=== PATIENT | female | born 1935 | race Caucasian/White ===

== ENCOUNTER 2017-03-18 07:51 | Inpatient (IN) ==
[2017-03-18 08:44] LABS: Basophils % 0.2 %; Eosinophils # 0.1 K/mcL (0.0-0.6); Eosinophils % 1.2 %; Hematocrit 40.4 % (35.3-44.9); Hemoglobin 12.8 g/dL (11.5-15.4); Immature Granulocytes % 0.2 % (0-4); Lymphocytes # 0.8 K/mcL (0.6-4.6); Lymphocytes % 19.6 %; Mean Corpuscular HGB Conc 31.7 g/dL (31.6-35.5); Mean Corpuscular Hemoglobin 29.7 pg (28.0-33.3); Mean Corpuscular Volume 93.7 fL (83.0-100.0); Mean Platelet Volume 11.1 fL (9.4-12.4); Monocytes # 0.3 K/mcL (0.0-1.3); Monocytes % 8.1 %; Neutrophils # 2.9 K/mcL (1.6-8.9); Platelet Count 142 K/mcL (140-400); Red Blood Count 4.31 M/mcL (3.82-4.97); Red Cell Distribution Width 13.4 % (11.5-14.5); Segmented Neutrophils % 70.7 %
[2017-03-18 08:46] LABS: INR 1.1; Prothrombin Time 12.1 Seconds (9.4-12.1)
[2017-03-18 08:49] LABS: Bilirubin,Urine Negative (Negative); Blood,Urine Negative (Negative); Color,Urine Yellow (Yellow); Glucose,Urine (UA) Normal (Normal); Ketones,Urine Negative (Negative); Leukocyte Esterase,Urine Negative (Negative); Nitrite,Urine Negative (Negative); PH,Urine 7.5 pH Units (5.0-8.0); Protein,Urine Negative (Neg-Trace); Specific Gravity,Urine 1.017 (1.010-1.025); Urobilinogen,Urine Normal (Normal)
[2017-03-18 08:49] LABS: Activated Partial Thrombo Time 30.5 Seconds (26.0-36.0)
[2017-03-18 08:51] LABS: Bacteria,Urine None Seen per hpf (None-Few); Hyaline Casts,Urine None Seen per lpf (None-Few); RBC,Urine 0-3 per hpf (0-3); Squamous Epithelial Cell,Urine Few per lpf (None-Few)
[2017-03-18 08:53] LABS: Clarity,Urine Clear (Clear)
[2017-03-18 08:54] LABS: Amphetamine Screen,Urine Negative ng/mL (Cutoff=1000); Barbiturate Screen,Urine Negative ng/mL (Cutoff=200); Benzodiazepines Screen,Urine Negative ng/mL (Cutoff=200); Cannabinoid Screen,Urine Negative ng/mL (Cutoff = 50); Cocaine Screen,Urine Negative ng/mL (Cutoff= 300); Opiate Screen,Urine Negative ng/mL (Cutoff=300); Phencyclidine Screen,Urine Negative ng/mL (Cutoff=25)
[2017-03-18 08:55] LABS: BUN/Creatinine Ratio 11 (6-26); Blood Urea Nitrogen 10 mg/dL (7-20); Carbon Dioxide 30 mEq/L (19-29); Chloride 105 mEq/L (98-109); Potassium 4.2 mEq/L (3.5-4.5); Sodium 139 mEq/L (136-145); eGFR For African Americans > 60 (> 60)
[2017-03-18 08:56] LABS: Alanine Aminotransferase 18 Units/L (0-55); Albumin 3.4 g/dL (3.5-5.0); Albumin/Globulin Ratio 0.9 (1.1-2.2); Alkaline Phosphatase 69 Units/L (38-126); Aspartate Amino Transferase 26 Units/L (5-34); Bilirubin,Direct 0.4 mg/dL (0.0-0.5); Bilirubin,Indirect 0.5 mg/dL (0.0-1.2); Bilirubin,Total 0.9 mg/dL (0.2-1.2); Calcium 9.3 mg/dL (8.6-10.8); Ethanol < 10 mg/dL (0-10); Globulin 3.9 g/dL (2.4-3.5); Glucose 98 mg/dL (70-99); Osmolality,Calculated 287 (280-300); Total Protein 7.3 g/dL (6.0-8.3); eGFR For Non-African Americans > 60 (> 60)
[2017-03-18 09:16] LABS: Thyroid Stimulating Hormone 7.902 mcIU/mL (0.350-4.840)
[2017-03-18] MEDS ORDERED: Ondansetron 4 MG/2 ML VIAL IVP PRN (11:37)
[2017-03-18] MEDS ORDERED: Acetaminophen 325 MG TABLET PO PRN (11:37)
[2017-03-18] MEDS ORDERED: Naloxone 0.4 MG/ML INJ IVP PRN (11:37)
--- NOTE | 2017-03-18 11:59 | Emergency Department Note ---
Disposition Clinical Impression: Altered mental status Qualifiers: Altered mental status type: unspecified Qualified Code(s): R41.82 - Altered mental status, unspecified Disposition: Admitted As Inpatient General Adult HPI - General Chief complaint: ED Altered Mental Status Stated complaint: confused and shaky Time Seen by Provider: 03/18/17 08:09 Source: patient Limitations: no limitations Nursing Notes Reviewed: Yes Vital Signs Reviewed: Yes - History of Present Illness HPI Narrative: 81-year-old female presenting with concern for altered mental status. She does have known dementia however family reports that during the evenings at approximately 2 AM she becomes acutely confused. Her dementia is minimal at this time per her brother's history. She has no trauma, denies new medications. She ambulates without difficulty. She has no focal neurological deficit on arrival. She is repetitive and confused. She denies cough, congestion, fever, chills, night sweats. Pain Scale: 0 - Related Data Home Medications Medication Instructions Recorded Confirmed Digoxin [Lanoxin] 0.125 mg PO DAILY 03/18/17 03/18/17 Metoprolol XL (24 HR) Succ [Toprol 12.5 mg PO DAILY 03/18/17 03/18/17 XL] Rivaroxaban [Xarelto] 20 mg PO DAILY 03/18/17 03/18/17 Allergies Allergy/AdvReac Type Severity Reaction Status Date / Time No Known Allergies Allergy Verified 03/18/17 10:37 All systems ED: reviewed and negative except as stated. Past Medical History - Past Medical History Medical history: Reports: atrial fibrillation, dementia, hypertension, valvular heart disease Psychiatric history: Reports: no psych history - Social History Smoking Status: Never smoker Smokeless Tobacco Status: No Alcohol use: Reports: none Drug use: Reports: none Physical Exam Confused, alert to person however not place or time Pupils are equal round and reactive to light Trachea is midline Mucous membranes are moist Irregular cardiac rhythm consistent with underlying atrial fibrillation Lungs clear and equal bilaterally Abdomen soft and nontender Extremities well perfused Skin pink warm and dry Strength is 5/5, sensation normal, reflexes checked and normal. - General Limitations: no limitations General appearance: alert, in no apparent distress Course Vital Signs Temperature 97.4 F L 03/18/17 07:54 Pulse Rate 107 03/18/17 07:54 Respiratory Rate 16 03/18/17 07:54 Blood Pressure 149/89 03/18/17 07:54 O2 Sat by Pulse Oximetry 98 03/18/17 07:54 Temperature 97.4 F L 03/18/17 07:54 Pulse Rate 95 03/18/17 09:12 Respiratory Rate 16 03/18/17 09:12 Blood Pressure 147/87 03/18/17 09:12 O2 Sat by Pulse Oximetry 98 03/18/17 07:54 Oxygen Delivery Oxygen Delivery Room Air Medical Decision Making - MDM Narrative Medical decision making narrative: 81-year-old female with dementia, now having worsening mental status and possibly sundowning. She does of acute confusion which starts at approximately 2 AM every night. She does live independently but has assistance from her brother who dispenses her medications. She has no new medications. She is no focal neurological deficit on arrival. I do feel at this point she is likely unsafe to go home and would benefit from inpatient rehabilitation and possible geriatric psychiatric consultation after neurology clearance. - Medical Records Medical records reviewed: Yes I reviewed the patient's medical records. - Lab Data Lab results reviewed: Yes I reviewed the patient's lab results. Result diagrams: 03/18/17 08:31 03/18/17 08:31 Lab Results 03/18/17 03/18/17 03/18/17 Range/Units 08:31 08:31 08:31 WBC 4.1 L (4.3-11.1) K/mcL RBC 4.31 (3.82-4.97) M/mcL Hgb 12.8 (11.5-15.4) g/dL Hct 40.4 (35.3-44.9) % MCV 93.7 (83.0-100.0) fL MCH 29.7 (28.0-33.3) pg MCHC 31.7 (31.6-35.5) g/dL RDW 13.4 (11.5-14.5) % Plt Count 142 (140-400) K/mcL MPV 11.1 (9.4-12.4) fL Immature Gran % 0.2 (0-4) % Seg Neutrophils % 70.7 % Lymphocytes % 19.6 % Monocytes % 8.1 % Eosinophils % 1.2 % Basophils % 0.2 % Neutrophils # 2.9 (1.6-8.9) K/mcL Lymphocytes # 0.8 (0.6-4.6) K/mcL Monocytes # 0.3 (0.0-1.3) K/mcL Eosinophils # 0.1 (0.0-0.6) K/mcL Basophils # 0.0 (0.0-0.2) K/mcL PT 12.1 (9.4-12.1) Seconds INR 1.1 APTT 30.5 (26.0-36.0) Seconds Sodium 139 (136-145) mEq/L Potassium 4.2 (3.5-4.5) mEq/L Chloride 105 (98-109) mEq/L Carbon Dioxide 30 H (19-29) mEq/L BUN 10 (7-20) mg/dL Creatinine 0.89 (0.57-1.11) mg/dL Est GFR ( Amer) > 60 (> 60) Est GFR (Non-Af Amer) > 60 (> 60) BUN/Creatinine Ratio 11 (6-26) Glucose 98 (70-99) mg/dL Calculated Osmolality 287 (280-300) Calcium 9.3 (8.6-10.8) mg/dL Total Bilirubin 0.9 (0.2-1.2) mg/dL Direct Bilirubin 0.4 (0.0-0.5) mg/dL Indirect Bilirubin 0.5 (0.0-1.2) mg/dL AST 26 (5-34) Units/L ALT 18 (0-55) Units/L Alkaline Phosphatase 69 (38-126) Units/L Troponin I (0-0.03) ng/mL Serum Total Protein 7.3 (6.0-8.3) g/dL Albumin 3.4 L (3.5-5.0) g/dL Globulin 3.9 H (2.4-3.5) g/dL Albumin/Globulin Ratio 0.9 L (1.1-2.2) TSH 7.902 H (0.350-4.840) mcIU/mL Urine Color (Yellow) Urine Clarity (Clear) Urine pH (5.0-8.0) pH Units Ur Specific [place] (1.010-1.025) Urine Protein (Neg-Trace) mg/dL Urine Glucose (UA) (Normal) mg/dL Urine Ketones (Negative) mg/dL Urine Blood (Negative) Urine Nitrite (Negative) Urine Bilirubin (Negative) Urine Urobilinogen (Normal) mg/dL Ur Leukocyte Esterase (Negative) Urine Microscopic RBC (0-3) per hpf Ur Squamous Epith Cells (None-Few) per lpf Urine Bacteria (None-Few) per hpf Hyaline Casts (None-Few) per lpf Ur Culture Indicated? (NO) Urine Opiates Screen (Cgurmt=522) ng/mL Ur Barbiturates Screen (Ruzzcl=758) ng/mL Ur Phencyclidine Scrn (Cutoff=25) ng/mL Ur Amphetamines Screen (Ogqztn=4472) ng/mL U Benzodiazepines Scrn (Mzkhdo=136) ng/mL Urine Cocaine Screen (Cutoff= 300) ng/mL U Marijuana (THC) Screen (Cutoff = 50) ng/mL Ethyl Alcohol < 10 (0-10) mg/dL 03/18/17 03/18/17 03/18/17 Range/Units 08:31 08:36 08:36 WBC (4.3-11.1) K/mcL RBC (3.82-4.97) M/mcL Hgb (11.5-15.4) g/dL Hct (35.3-44.9) % MCV (83.0-100.0) fL MCH (28.0-33.3) pg MCHC (31.6-35.5) g/dL RDW (11.5-14.5) % Plt Count (140-400) K/mcL MPV (9.4-12.4) fL Immature Gran % (0-4) % Seg Neutrophils % % Lymphocytes % % Monocytes % % Eosinophils % % Basophils % % Neutrophils # (1.6-8.9) K/mcL Lymphocytes # (0.6-4.6) K/mcL Monocytes # (0.0-1.3) K/mcL Eosinophils # (0.0-0.6) K/mcL Basophils # (0.0-0.2) K/mcL PT (9.4-12.1) Seconds INR APTT (26.0-36.0) Seconds Sodium (136-145) mEq/L Potassium (3.5-4.5) mEq/L Chloride (98-109) mEq/L Carbon Dioxide (19-29) mEq/L BUN (7-20) mg/dL Creatinine (0.57-1.11) mg/dL Est GFR ( Amer) (> 60) Est GFR (Non-Af Amer) (> 60) BUN/Creatinine Ratio (6-26) Glucose (70-99) mg/dL Calculated Osmolality (280-300) Calcium (8.6-10.8) mg/dL Total Bilirubin (0.2-1.2) mg/dL Direct Bilirubin (0.0-0.5) mg/dL Indirect Bilirubin (0.0-1.2) mg/dL AST (5-34) Units/L ALT (0-55) Units/L Alkaline Phosphatase (38-126) Units/L Troponin I 0.02 (0-0.03) ng/mL Serum Total Protein (6.0-8.3) g/dL Albumin (3.5-5.0) g/dL Globulin (2.4-3.5) g/dL Albumin/Globulin Ratio (1.1-2.2) TSH (0.350-4.840) mcIU/mL Urine Color Yellow (Yellow) Urine Clarity Clear (Clear) Urine pH 7.5 (5.0-8.0) pH Units Ur Specific [place] 1.017 (1.010-1.025) Urine Protein Negative (Neg-Trace) mg/dL Urine Glucose (UA) Normal (Normal) mg/dL Urine Ketones Negative (Negative) mg/dL Urine Blood Negative (Negative) Urine Nitrite Negative (Negative) Urine Bilirubin Negative (Negative) Urine Urobilinogen Normal (Normal) mg/dL Ur Leukocyte Esterase Negative (Negative) Urine Microscopic RBC 0-3 (0-3) per hpf Ur Squamous Epith Cells Few (None-Few) per lpf Urine Bacteria None Seen (None-Few) per hpf Hyaline Casts None Seen (None-Few) per lpf Ur Culture Indicated? NO (NO) Urine Opiates Screen Negative (Zwlcbd=525) ng/mL Ur Barbiturates Screen Negative (Fsljuf=507) ng/mL Ur Phencyclidine Scrn Negative (Cutoff=25) ng/mL Ur Amphetamines Screen Negative (Wbawvo=0048) ng/mL U Benzodiazepines Scrn Negative (Utuwpr=284) ng/mL Urine Cocaine Screen Negative (Cutoff= 300) ng/mL U Marijuana (THC) Screen Negative (Cutoff = 50) ng/mL Ethyl Alcohol (0-10) mg/dL
--- NOTE | 2017-03-18 12:06 | Internal Med History&Physical ---
<Artemio Hassan - Last Filed: 03/18/17 17:00> Date of Encounter: 03/18/17 Time of Encounter: 11:00 Assessment and Plan (1) Altered mental status Current visit: Yes Status: Acute Patient presents with altered mental status. Patient was brought to the ED by her brother who states that the patient called him three times in the distribution dispatcher and cannot remember doing so. Patient currently lives alone. Patient is lucid during examination but has flight of thoughts and transient thinking. She states that she begins to feel different around 2 a.m. and doesn't begin to feel like herself until around noon. She states that she drives and is very active normally. She states that she cuts her grass, walks her dog, and is normally very active. She states that she just wants to feel okay again. She reports a 15 pound weight loss but cannot remember over what time period. CT of the head brain without contrast today shows no acute intracranial abnormality and mild age-appropriate diffuse atrophy with minimal chronic small vessel ischemic change. Haldol ordered 2 mg BID PRN (especially HS) for possible agitation. Patient alert/oriented x2. Neurology consult ordered and discussed with Dr. Kern. EEG ordered. Falls/safety precautions. SW consult ordered for possible need for placement. Will continue patient's home medications. Patient should be assessed by her PCP for possible administration of Namenda or Aricept based on current symptoms. Qualifiers: Altered mental status type: transient alteration of awareness Qualified Code(s): R40.4 - Transient alteration of awareness (2) Elevated TSH Current visit: Yes Status: Acute Patient presents with TSH of 7.092 on admission to the ED today. Patient has no known history of thyroid disease and does not currently take medication. Free T4 , Total T3 levels ordered to assess for the need for levothyroxine administration. (3) Safety impairment Current visit: Yes Status: Acute Patient presents with acute safety impairment on examination. Patient is lucid but has flight of thoughts and transient thinking. Patient's brother states that he believes the patient was doubling up on her medication without knowing so he has taken her meds and dispenses them to her daily. SW consult order placed to asses patient for possible need for placement to assistive living. Patient states that she still drives and is relatively active. PT/OT consults ordered to assess patient for possible strength needs. Patient placed as falls precautions/up with assist/bed rest with bathroom privileges with assist only. (4) Atrial fibrillation Current visit: Yes Status: Chronic Patient percents with history of chronic atrial fibrillation. Patient placed on continuous cardiac telemetry and we will continue patient's digoxin and Xarelto. Digoxin level ordered. Qualifiers: Atrial fibrillation type: chronic Qualified Code(s): I48.2 - Chronic atrial fibrillation (5) HTN (hypertension) Current visit: Yes Status: Chronic Patient presents with history of chronic hypertension. Will monitor patient vital signs and continue patient's metoprolol. Qualifiers: Hypertension type: essential hypertension Qualified Code(s): I10 - Essential (primary) hypertension (6) DVT prophylaxis Current visit: Yes Status: Acute Patient to be placed on DVT prophylaxis due to current admission protocol and bed rest status. Will continue patient's Xarelto. Internal Medicine - H&P: HPI Chief complaint: Altered Mental Status Admitted From: Emergency Dept Plans for Post Hospital Care: Home History of present illness: Mrs. Jones is a 81 year old female who presents from the ED with chief complaint of altered mental status. Patient was brought to the ED by her brother who states that the patient called him three times in the eary morning and cannot remember doing so. Patient is lucid during examination but has flight of thoughts and transient thinking. She states that she begins to feel different around 2 a.m. and doesn't begin to feel like herself until around noon. She states that she drives and is very active normally. She states that she cuts her grass, walks her dog, and is normally very active. She states that she just wants to feel okay again. She reports a 15 pound weight loss but cannot remember over what time period. She denies any weakness, unsteadiness on her feet, recent illness, fever, chills, nausea, vomiting, abdominal pain, or unusual bleeding. Patient does have hematomas present on her UEs and LEs related to her Xarelto use. Patient currently has atrial fibrillation. Patient denies any medical history that she can remember, but she does have Afib and takes medication for HTN. Will do lipid panel and A1c to assess for HLD and DM. TSH is 7.902 on admission to ED. Free T4 ordered. Patient may benefit from Synthroid based on results. Patient has familial history of Alzheimer's disease as well as CVA/stroke. CT of the head today without contrast shows no acute intracranial abnormality with mild age-appropriate diffuse atrophy with minimal chronic small vessel ischemic change. Mrs. Jones currently lives alone and is at moderate risk for neurological decline and safety issues based on current symptoms and history of AMS and will be placed as observation status with orders for continuous cardiac telemetry d/t Afib, dysphagia screen (NPO status to be discontinued for cardiac diet once screening is passed), bilateral carotid Doppler duplex imaging, Falls/safety precautions, supplemental O2, and consults for SW/PT/OT. Haldol 2 mg HS and BID PRN ordered for agitation. Patient to be monitored closely for signs of neurological decline. Time spent with patient and family >30 minutes. Past Med Surg Social Fam HX - Past Medical History Source: obtained from family Medical history: atrial fibrillation, dementia, hypertension, valvular heart disease Psychiatric history: no psych history - Past Surgical History Surgical History: non-contributory - Social History Smoking Status: Never smoker Smokeless Tobacco Status: No Alcohol use: none Drug use: none Occupational status: previously employed Current living situation: Home Activity Level: Independent ambulation, Very active Recent Out of Country Travel Within the Last 8 Weeks: No Exposure or Possible Exposure to Illness During Travel: No - Family History Father Race: Family Member Ethnicity: Non- Living Status: Age at : 45 Cause of : Throat cancer Hx Family Cancer: Yes (Throat) Mother Race: Family Member Ethnicity: Non- Living Status: Age at : 79 Cause of : Stroke Hx Family Cardiac Disorders: Yes (Stroke/CVA) Brother Race: Family Member Ethnicity: Non- Living Status: Still Living Hx Family Cardiac Disorders: Yes (Heart murmur) Sister Race: Family Member Ethnicity: Non- Living Status: Still Living Hx Family Neurologic Disorders: Yes (Alzheimer's dementia) Internal Medicine - H&P: Meds Digoxin [Lanoxin] 0.125 mg PO DAILY 03/18/17 [History] Metoprolol XL (24 HR) Succ [Toprol XL] 12.5 mg PO DAILY 03/18/17 [History] Rivaroxaban [Xarelto] 20 mg PO DAILY 03/18/17 [History] 3 Allergy/AdvReac Type Severity Reaction Status Date / Time No Known Allergies Allergy Verified 03/18/17 10:37 All Systems PM: A 10-system review of systems was performed and is negative for pertinent findings except as documented above in the HPI. - Constitutional Constitutional: as per HPI, weight loss (15 pounds over unknown time period), no chills, no fever(s), no night sweats - EENT Eyes: no change in vision, no discharge, no pain, no photophobia Ears: no ear discharge, no ear pain, no tinnitus Nose, mouth and throat: no dysphagia, no nasal discharge, no neck pain, no sore throat - Breasts Breasts: as per HPI - Cardiovascular Cardiovascular ROS IM: as per HPI, irregular heart rhythm (Atrial fibrillation) - Respiratory Respiratory: no cough, no dyspnea, no wheezing, no excessive phlegm production - Gastrointestinal Gastrointestinal: no abdominal pain, no diarrhea, no hematemesis, no hematochezia, no melena, no nausea, no vomiting - Genitourinary Genitourinary: no change in urinary stream, no dysuria, no flank pain, no hematuria Menstruation: as per HPI - Musculoskeletal Musculoskeletal ROS IM: no numbness, no tingling - Integumentary Integumentary IM: no rash, no unusual bruising - Neurological Neurological ROS: as per HPI, confusion, memory loss - Psychiatric Psychiatric: as per HPI, confusion, memory loss - Endocrine Endocrine IM: as per HPI - Hematologic/Lymphatic Hematologic/Lymphatic: no easy bruising - Allergic/Immunologic Allergic/Immunologic: as per HPI - Constitutional Vitals: Temp Pulse Resp BP Pulse Ox 97.4 F L 95 16 147/87 98 03/18/17 07:54 03/18/17 09:12 03/18/17 09:12 03/18/17 09:12 03/18/17 07:54 General appearance: Present: cooperative, A&O X 2, pleasant, no acute distress, underweight, answers questions appropriately - Head Head exam: Present: atraumatic, normocephalic - Eye Eye exam: Present: PERRL, conjuntiva pink, sclera anicteric Pupils: Present: PERRL - ENT ENT exam: Present: normal exam, normal external ear exam - Neck Neck exam general surgery: Present: supple, trachea midline. Absent: lymphadenopathy - Respiratory Respiratory exam: Present: CTAB. Absent: accessory muscle use, rales, rhonchi, wheezes - Cardiovascular Cardiovascular exam: Present: irregular rhythm (Atrial fibrillation) - GI/Abdominal GI/Abdominal exam: Present: normal bowel sounds, soft, no peritoneal signs. Absent: distended, tenderness - Rectal Rectal exam: Present: deferred - Additional comments: exam deferred. - Extremities Exam Extremities exam: Present: warm, radial pulses palpable and symmetrical. Absent : calf tenderness, cyanotic, pedal edema - Back Exam Back exam: Present: normal inspection - Neurological Exam Neurological exam: Present: altered, reflexes normal, strengths equal and symetr throughout - Psychiatric Psychiatric exam: Present: normal affect, normal mood - Skin Skin exam: Present: dry, intact Additional comments: Some bruising and hematomas present on UEs and LEs due to Xarelto use. Internal Med - H&P Results - Labs CBC & Chem 7: 03/18/17 08:31 03/18/17 08:31 - EKG Data Prior EKG available for review: yes When compared to previous EKG: there is no significant change EKG comments: 03/18/17 12:25 Ekg dated 01/31/17 shows atrial fibrillation with abnormal rhythm ECG. EKG dated 03/18/17 shows atrial fibrillation with nonspecific T-wave abnormality and abnormal rhythm ECG. 03/18/17 12:26 - Diagnostic Studies Chest x-ray Additional comments: Impressions Chest X-Ray 03/18/17 08:11 IMPRESSION: Mild right and left mid lung atelectasis. Cardiomegaly. D/ / Ngoc Mares MD / Ngoc Mares MD Interpreting Provider: Ngoc Mares MD CT scan - head Additional comments: Impressions Head CT 03/18/17 08:12 IMPRESSION: 1. No acute intracranial abnormality. 2. Mild age-appropriate diffuse atrophy with minimal chronic small vessel ischemic change. D/ / Jairo Sheehan MD / Jairo Sheehan MD Interpreting Provider: Jairo Sheehan MD <Justine Falk - Last Filed: 03/18/17 17:35> Date of Encounter: 03/18/17 Internal Medicine - H&P: HPI History of present illness: Ms. Jones is a 81 year old female All Systems PM: A 10-system review of systems was performed and is negative for pertinent findings except as documented above in the HPI. - Constitutional Vitals: Temp Pulse Resp BP Pulse Ox 97.9 F 91 16 133/81 97 03/18/17 16:02 03/18/17 16:02 03/18/17 16:02 03/18/17 16:02 03/18/17 16:02 Internal Med - H&P Results - Labs CBC & Chem 7: 03/18/17 08:31 03/18/17 08:31 - Attending Attestation Pt independently seen and examined. Admitted for worsening dementia. Noted to have thyroid studies consistent with hypothyroidism. Will start low dose levothyroxine. Neurology evaluation requested. social organization professor consultation requested for placement. Case discussed with SEBLE Hassan, I agree with his documented findings , assessment, and plan.
[2017-03-18 13:49] LABS: Digoxin < 0.3 ng/mL (0.8-2.0)
[2017-03-18] MEDS: *HR* Rivaroxaban 15 MG TABLET PO SCH (14:10)
[2017-03-18] MEDS: Metoprolol XL (24 HR) Succ 25 MG TAB.ER.24H PO SCH (14:10)
[2017-03-18] MEDS: *HR* Digoxin 0.125 MG TABLET PO SCH (14:10)
[2017-03-19] MEDS: Levothyroxine 25 MCG TABLET PO SCH (05:33)
[2017-03-19 05:40] LABS: Basophils % 0.3 %; Eosinophils # 0.1 K/mcL (0.0-0.6); Eosinophils % 1.7 %; Hematocrit 39.9 % (35.3-44.9); Hemoglobin 12.5 g/dL (11.5-15.4); Lymphocytes % 28.5 %; Mean Corpuscular HGB Conc 31.3 g/dL (31.6-35.5); Mean Corpuscular Hemoglobin 29.1 pg (28.0-33.3); Mean Platelet Volume 10.8 fL (9.4-12.4); Monocytes # 0.4 K/mcL (0.0-1.3); Monocytes % 10.4 %; Neutrophils # 2.1 K/mcL (1.6-8.9); Platelet Count 131 K/mcL (140-400); Red Blood Count 4.29 M/mcL (3.82-4.97); Red Cell Distribution Width 13.7 % (11.5-14.5); Segmented Neutrophils % 59.1 %
[2017-03-19 05:46] LABS: INR 1.3; Prothrombin Time 13.6 Seconds (9.4-12.1)
[2017-03-19 05:47] LABS: Hemoglobin A1C 5.5 %
[2017-03-19 05:48] LABS: Activated Partial Thrombo Time 33.2 Seconds (26.0-36.0)
[2017-03-19 05:55] LABS: BUN/Creatinine Ratio 12 (6-26); Blood Urea Nitrogen 10 mg/dL (7-20); Calcium 8.9 mg/dL (8.6-10.8); Carbon Dioxide 30 mEq/L (19-29); Chloride 105 mEq/L (98-109); Chol/HDL Ratio 2.8 (0-4.9); Cholesterol 143 mg/dL (< 200); Glucose 82 mg/dL (70-99); HDL Cholesterol 52 mg/dL (40-59); LDL Cholesterol,Calculated 80 mg/dL (0-99); Magnesium 2.1 mg/dL (1.6-2.6); Osmolality,Calculated 284 (280-300); Potassium 3.8 mEq/L (3.5-4.5); Sodium 138 mEq/L (136-145); Triglycerides 54 mg/dL (< 150); eGFR For African Americans > 60 (> 60); eGFR For Non-African Americans > 60 (> 60)
--- NOTE | 2017-03-19 08:01 | Electrocardiograph Report ---
[address] [place] [id number] Test Date: 2017-03-18 Pat Name: Dotty Jones Department: 104 Room: 2A22 Gender: F Admissions Consultant: JAEL : [id number] Requested By: Curt Ortega Order Number: [id number] Reading MD: Ryan Ortiz MD Measurements Intervals [place] Rate: 88 P: AL: 0 QRS: 33 QRSD: 90 T: -17 QT: 369 QTc: 414 Interpretive Statements ATRIAL FIBRILLATION Electronically Signed On 03-19-2017 7:58:58 EDT by Ryan Ortiz MD
[2017-03-19] MEDS: Pantoprazole 40 MG VIAL IVP SCH (08:27)
[2017-03-19] MEDS: Metoprolol XL (24 HR) Succ 25 MG TAB.ER.24H PO SCH (08:27)
[2017-03-19] MEDS: *HR* Digoxin 0.125 MG TABLET PO SCH (08:28)
[2017-03-19] MEDS: *HR* Rivaroxaban 15 MG TABLET PO SCH (08:28)
--- NOTE | 2017-03-19 10:10 | Internal Med Progress Note ---
<Aiden Soriano - Last Filed: 03/19/17 11:43> Date of Encounter: 03/19/17 Time of Encounter: 10:04 - Assessment and plan (1) Altered mental status Current Visit: Yes Status: Acute Assessment and plan: Dementia vs CVA vs delirium Patient in the last few days has lapse in memory, after concerns her son brought her in. Hx: HTN, afib, family CVA. CTA head: no acute impression, mild diffuse atrophy, minimal small ischemic changes. Patient is currently tangential thought process. - Haldol 2 mg BID PRN . - Fall Precautions - SW consult pending Qualifiers: Altered mental status type: transient alteration of awareness Qualified Code(s): R40.4 - Transient alteration of awareness (2) Atrial fibrillation Current Visit: Yes Status: Chronic Assessment and plan: Patient has history of chronic afib. Currently Heart sounds are irregular irregular. Digoxin subtherapeutic levels, possible med non-compliance - continue digoxin - continue xarelto Qualifiers: Atrial fibrillation type: chronic Qualified Code(s): I48.2 - Chronic atrial fibrillation (3) HTN (hypertension) Current Visit: Yes Status: Chronic Assessment and plan: Hx of chronic HTN, currently stable - continue home metoprolol XL 12.5 Qualifiers: Hypertension type: essential hypertension Qualified Code(s): I10 - Essential (primary) hypertension (4) DVT prophylaxis Current Visit: Yes Status: Acute Assessment and plan: continue Xarelto - Subjective Interval history: 81 year old female on day 1 of admission 2/2 AMS w/ forgetfulness in the last few days w/ hx HTN, FMHx CVA/stroke. Patient initially reports concerns that her meds were not correct and refused to take meds nurses. After speaking with her she took her medications. Patient during interview was tangential thoughts around her health going from the change of IV placement, to daughters trying to take her money to her daughters giving her too much medications at times to doctors she sees. Patient did not communicate to me the reason why she is hospitalized. Patient denies CP SOB, f/c/n/v. - Constitutional Vitals: Temp Pulse Resp BP Pulse Ox 97.9 F 92 16 121/84 97 03/19/17 06:50 03/19/17 06:50 03/19/17 06:50 03/19/17 06:50 03/19/17 06:50 General appearance: Present: cooperative, A&O X 2, pleasant, no acute distress, underweight, answers questions appropriately - Head Head exam: Present: atraumatic, normocephalic - Respiratory Respiratory exam: Present: CTAB. Absent: accessory muscle use, rales, rhonchi, wheezes - Cardiovascular Cardiovascular exam: Present: irregular rhythm - Expanded Cardiovascular Exam Peripheral pulses: 2+: Radial (L) (irregular), Radial (R) (irregular) - GI/Abdominal GI/Abdominal exam: Present: normal bowel sounds, soft, no peritoneal signs. Absent: distended, tenderness - Neurological Exam Neurological exam: Present: alert - Psychiatric Psychiatric exam: Present: normal affect, normal mood Internal Medicine: Result - Labs CBC & Chem 7: 03/19/17 05:00 03/19/17 05:00 Labs: Short CBC 03/19/17 Range/Units 05:00 WBC 3.6 L (4.3-11.1) K/mcL Hgb 12.5 (11.5-15.4) g/dL Hct 39.9 (35.3-44.9) % Plt Count 131 L (140-400) K/mcL Neutrophils # 2.1 (1.6-8.9) K/mcL BMP 03/19/17 05:00 Sodium 138 Potassium 3.8 Chloride 105 Carbon Dioxide 30 H BUN 10 Creatinine 0.84 Glucose 82 Calcium 8.9 - ABG Interpretation ABG results: PT/INR, D-dimer PT 13.6 Seconds (9.4-12.1) H 03/19/17 05:00 Consult Discharge Plan - Plan Referrals: NONE,PCP [Primary Care Provider] - <Kendrick Dubose P - Last Filed: 03/19/17 18:03> Date of Encounter: 03/19/17 - Constitutional Vitals: Temp Pulse Resp BP Pulse Ox 98.0 F 93 14 133/88 97 03/19/17 15:41 03/19/17 15:41 03/19/17 15:41 03/19/17 15:41 03/19/17 15:41 Internal Medicine: Result - Labs CBC & Chem 7: 03/19/17 05:00 03/19/17 05:00 Labs: Short CBC 03/19/17 Range/Units 05:00 WBC 3.6 L (4.3-11.1) K/mcL Hgb 12.5 (11.5-15.4) g/dL Hct 39.9 (35.3-44.9) % Plt Count 131 L (140-400) K/mcL Neutrophils # 2.1 (1.6-8.9) K/mcL BMP 03/19/17 05:00 Sodium 138 Potassium 3.8 Chloride 105 Carbon Dioxide 30 H BUN 10 Creatinine 0.84 Glucose 82 Calcium 8.9 - ABG Interpretation ABG results: PT/INR, D-dimer PT 13.6 Seconds (9.4-12.1) H 03/19/17 05:00 - Attending Attestation I examined this patient and my medical decision-making was reviewed with the Resident Physician. I agree with the documented findings, disposition and treatment plan as described except to the extent set forth below. 81/female Admitted with altered mental status. Seen by neurology. Neurology recommendations appreciated. Patient is very agitated and keen to leave the hospital. At this point, sitter is sitting next to the patient. We will continue IV antibiotics after blood culture. Plan: We will get psych tomorrow to see. She might need a geriatric psychiatric placement
--- NOTE | 2017-03-19 12:47 | EEG/EMG/Oth Biometrics Report ---
EEG Procedure Report Date of procedure: 03/19/17 EEG Procedure: Routine EEG Procedure Note: This EEG was acquired with standard international 1020 system with EKG recording. The background EEG activity was characterized by the presence of posterior dominant alpha rhythm with the best frequency up to 9 Hz. The background activity was reactive to eye openings. Sleep stages were characterized by the presence of background fragmentation, vertex waves, K complexes, and sleep spindles. There are no electrographic seizures identified during this tracing. There are no epileptiform discharges and focal slowing noted during this recording. Photic stimulation produced no abnormalities. Hyperventilation procedure was not performed EKG tracing showed no significant cardiac dysrhythmia. Impression: This is essentially a normal awake and asleep EEG. Clinical Correlation: Normal EEGs, however, do not exclude epilepsy. Clinical correlation advised.
--- NOTE | 2017-03-19 17:33 | Neurology - Consult Note ---
Date of Encounter: 03/19/17 Time of Encounter: 17:30 Assessment and Plan (1) Altered mental status Current Visit: Yes Status: Acute Patient has moderate to severe cognitive impairment, likely has baseline cognitive impairment but patient appears never evaluated b a neurologist. MMSE suggest moderate to severe cognitive impairment but the severity may be exaggerated by being in the hospital which may cause more confusion. This worsening of symptoms may be complicated by ongoing medical conditions therefore medical and supportive care needed if any significant medical conditions exist. Maintain fluid status and treat potential dehydration. Treatment is largely empirical and supportive. If symptoms occur at eye surgeon then small dose of seroquel (25mg) at bedtime may prevent patient from waking up during sleep. She can be followed up at neurology clinic in the future. May benefit from namenda or aricept. From neurology perspective, not much more can be done in an acute inpatient setting. I will see her at your request. Qualifiers: Altered mental status type: transient alteration of awareness Qualified Code(s): R40.4 - Transient alteration of awareness History of Present Illness Chief complaint: alerend mental status HPI: Ms. Jones is a 81 year old female with PMH significant for dementia, Atrial fibrillation, mitral valve stenosis, hearing loss who presented to ER with new onset of altered mental status. Patient is interviewed alone and she could not give useful information. Does appear to have baseline dementia. Admitting physician reported that the patient was observed by family members that she would get up at about 2am every night in the last few days agitated. She does have memory loss as one of her medical problems but treatment and evaluation of such condition unknown. CT of head showed age appropriate diffuse mild cerebral atrophy. no evidence of acute intracranial abnormality. Patient currentl denies any significant discomforts. She is expecting a meeting with her Caryn who is not here yet. She states that she wants to go home but she does not have the pop. Past Med Surg Social Fam HX - Past Medical History Medical history: atrial fibrillation, dementia, hypertension, valvular heart disease Psychiatric history: no psych history - Past Surgical History Surgical History: non-contributory - Social History Smoking Status: Never smoker Smokeless Tobacco Status: No Alcohol use: none Drug use: none - Family History Father Race: Family Member Ethnicity: Non- Living Status: Age at : 45 Cause of : Throat cancer Hx Family Cancer: Yes (Throat) Mother Race: Family Member Ethnicity: Non- Living Status: Age at : 79 Cause of : Stroke Hx Family Cardiac Disorders: Yes (Stroke/CVA) Brother Race: Family Member Ethnicity: Non- Living Status: Still Living Hx Family Cardiac Disorders: Yes (Heart murmur) Sister Race: Family Member Ethnicity: Non- Living Status: Still Living Hx Family Neurologic Disorders: Yes (Alzheimer's dementia) Medications and Allergies Digoxin [Lanoxin] 0.125 mg PO DAILY 03/18/17 [History] Metoprolol XL (24 HR) Succ [Toprol XL] 12.5 mg PO DAILY 03/18/17 [History] Rivaroxaban [Xarelto] 20 mg PO DAILY 03/18/17 [History] 3 Allergy/AdvReac Type Severity Reaction Status Date / Time No Known Allergies Allergy Verified 03/18/17 10:37 All Systems: A 10-system review of systems was performed and is negative for pertinent findings except as documented above in the HPI. Physical Examination - Vital Signs Vital Signs: Initial Vital Signs Temp Pulse Resp BP Pulse Ox 97.4 F L 107 16 149/89 98 03/18/17 07:54 03/18/17 07:54 03/18/17 07:54 03/18/17 07:54 03/18/17 07:54 - Constitutional General appearance: comfortable - Neurologic Sensorimotor examination: other (Grossly intact) Detailed motor examination: grossly full strength in all extremities Motor examination - right side: 5/5: deltoids, biceps, triceps, wrist flexion, wrist extension, emergency communications operator, hip flexors, tibialis Anterior, quadriceps, toe extension (EHL), plantarflexion Motor examination - left side: 5/5: deltoids, biceps, triceps, wrist flexion, wrist extension, hip flexors, emergency communications operator, quadriceps, tibialis Anterior, toe extension (EHL), plantarflexion Detailed sensory examination: other (Grossly intact) Reflexes: Biceps: 1+, Triceps: 1+, Brachioradialis: 1+, Patella: 1+, Achilles: 1 + Mental Status Examination: awake, alert, oriented to person Mental Status Examination: Patient disoriented to time and place, unable to remember the year, date, month nd season. Slightl agitated. partially oriented to place and person and remember her children's name. Difficulty with registration, short term name recall 1/3. Unable to calculate. Is able to spell however. Difficulty with multiple step commands. Cranial nerve examination: PERRL, EOMI, visual brown intact, corneal reflexes brisk symmetrically, sensory to face intact, mastication intact, no facial asymmetry is present, no dysarthria, hearing is intact symmetrically, soft palate elevates bilaterally upon phonation, gag reflex intact, flexes SCM and trapezius muscles symmetrically with full power, tongue protrudes midline, no atrophy or facial fasiculations present Results - Laboratory Findings CBC and BMP: 03/19/17 05:00 03/19/17 05:00 Abnormal lab findings: Abnormal lab results WBC 3.6 K/mcL (4.3-11.1) L 03/19/17 05:00 MCHC 31.3 g/dL (31.6-35.5) L 03/19/17 05:00 Plt Count 131 K/mcL (140-400) L 03/19/17 05:00 PT 13.6 Seconds (9.4-12.1) H 03/19/17 05:00 Carbon Dioxide 30 mEq/L (19-29) H 03/19/17 05:00 Albumin 3.4 g/dL (3.5-5.0) L 03/18/17 08:31 Globulin 3.9 g/dL (2.4-3.5) H 03/18/17 08:31 Albumin/Globulin Ratio 0.9 (1.1-2.2) L 03/18/17 08:31 TSH 7.902 mcIU/mL (0.350-4.840) H 03/18/17 08:31 Digoxin < 0.3 ng/mL (0.8-2.0) L 03/18/17 08:31 Consult Discharge Plan - Plan Referrals: NONE,PCP [Primary Care Provider] -
[2017-03-19] MEDS ORDERED: Haloperidol Lactate 5 MG/ML VIAL IVP ONE (18:00)
[2017-03-20] MEDS: Levothyroxine 25 MCG TABLET PO SCH (06:43)
[2017-03-20 07:12] LABS: Hematocrit 38.5 % (35.3-44.9); Hemoglobin 12.9 g/dL (11.5-15.4); Mean Corpuscular HGB Conc 33.5 g/dL (31.6-35.5); Mean Corpuscular Hemoglobin 30.6 pg (28.0-33.3); Mean Corpuscular Volume 91.4 fL (83.0-100.0); Mean Platelet Volume 10.9 fL (9.4-12.4); Platelet Count 129 K/mcL (140-400); Red Blood Count 4.21 M/mcL (3.82-4.97); Red Cell Distribution Width 13.6 % (11.5-14.5)
--- NOTE | 2017-03-20 07:18 | Internal Med Progress Note ---
<Aiden Soriano - Last Filed: 03/20/17 15:01> Date of Encounter: 03/20/17 Time of Encounter: 07:18 - Assessment and plan (1) Altered mental status Current Visit: Yes Status: Acute Assessment and plan: Dementia vs CVA vs delirium Patient in the last few days has lapse in memory, after concerns her son brought her in. Hx: HTN, afib, family CVA. CTA head: no acute impression, mild diffuse atrophy, minimal small ischemic changes. Patient is currently tangential thought process. Refused and fighting wiht staff and would not let staff take blood cx, was started on IV ceftriaxone. - Haldol 2 mg BID PRN. - Fall Precautions - SW consult pending - Psych eval in the PM - Neuro consult - suggest moderate to severe cognitive impairment, severity may be exaggerated 2/2 hospitalization. if symptoms in AM, use seroquel 25 mg at bedtime. - Outpatient F/U tx w/ namenda or aricept Qualifiers: Altered mental status type: transient alteration of awareness Qualified Code(s): R40.4 - Transient alteration of awareness (2) Atrial fibrillation Current Visit: Yes Status: Chronic Assessment and plan: Patient has history of chronic afib. Currently Heart sounds are irregular irregular. Digoxin subtherapeutic levels, possible med non-compliance - continue digoxin - continue xarelto Qualifiers: Atrial fibrillation type: chronic Qualified Code(s): I48.2 - Chronic atrial fibrillation (3) HTN (hypertension) Current Visit: Yes Status: Chronic Assessment and plan: Hx of chronic HTN, currently stable - continue home metoprolol XL 12.5 Qualifiers: Hypertension type: essential hypertension Qualified Code(s): I10 - Essential (primary) hypertension (4) DVT prophylaxis Current Visit: Yes Status: Acute Assessment and plan: continue Xarelto - Subjective Interval history: 81 year old female on day 1 of admission 2/2 AMS w/ forgetfulness in the last few days w/ hx HTN, FMHx CVA/stroke. Patient initially reports concerns that her meds were not correct and refused to take meds nurses. After speaking with her she took her medications. Patient during interview was tangential thoughts around her health going from the change of IV placement, to daughters trying to take her money to her daughters giving her too much medications at times to doctors she sees. Patient did not communicate to me the reason why she is hospitalized. Patient was very agitated, and unwillingly to cooperate. She continues to talk about "people" that are after her money, and that her daughter is after her. denies any n/v/c/f - Constitutional Vitals: Temp Pulse Resp BP Pulse Ox 97.8 F 80 16 126/61 95 03/20/17 07:05 03/20/17 07:05 03/20/17 07:05 03/20/17 07:05 03/20/17 07:05 General appearance: Present: cooperative, A&O X 2, pleasant, no acute distress, underweight, answers questions appropriately - Respiratory Respiratory exam: Present: CTAB. Absent: accessory muscle use, rales, rhonchi, wheezes - Cardiovascular Cardiovascular exam: Present: RRR, +S1, +S2. Absent: diastolic murmur, gallop, rubs, systolic murmur - GI/Abdominal GI/Abdominal exam: Present: normal bowel sounds, soft, no peritoneal signs. Absent: distended, tenderness - Neurological Exam Neurological exam: Present: alert - Psychiatric Psychiatric exam: Present: agitated, anxious, depressed Internal Medicine: Result - Labs CBC & Chem 7: 03/20/17 07:02 03/20/17 07:02 Labs: Short CBC 03/20/17 Range/Units 07:02 WBC 4.2 L (4.3-11.1) K/mcL Hgb 12.9 (11.5-15.4) g/dL Hct 38.5 (35.3-44.9) % Plt Count 129 L (140-400) K/mcL - ABG Interpretation ABG results: PT/INR, D-dimer PT 13.6 Seconds (9.4-12.1) H 03/19/17 05:00 Consult Discharge Plan - Plan Referrals: NONE,PCP [Primary Care Provider] - (unsure of d/c distination at this time. Patient is confused and is unable to tell us who her pcp is) <Kendrick Dubose P - Last Filed: 03/20/17 18:19> Date of Encounter: 03/20/17 - Constitutional Vitals: Temp Pulse Resp BP Pulse Ox 97.5 F L 89 16 144/90 98 03/20/17 11:08 03/20/17 11:08 03/20/17 11:08 03/20/17 11:08 03/20/17 11:08 Internal Medicine: Result - Labs CBC & Chem 7: 03/20/17 07:02 03/20/17 07:02 Labs: Short CBC 03/20/17 Range/Units 07:02 WBC 4.2 L (4.3-11.1) K/mcL Hgb 12.9 (11.5-15.4) g/dL Hct 38.5 (35.3-44.9) % Plt Count 129 L (140-400) K/mcL BMP 03/20/17 07:02 Sodium 139 Potassium 3.9 Chloride 106 Carbon Dioxide 27 BUN 12 Creatinine 0.79 Glucose 95 Calcium 9.1 - ABG Interpretation ABG results: PT/INR, D-dimer PT 13.6 Seconds (9.4-12.1) H 03/19/17 05:00 - Attending Attestation I examined this patient and my medical decision-making was reviewed with the Resident Physician. I agree with the documented findings, disposition and treatment plan as described except to the extent set forth below. placement at [facility].
[2017-03-20 07:25] LABS: BUN/Creatinine Ratio 15 (6-26); Blood Urea Nitrogen 12 mg/dL (7-20); Calcium 9.1 mg/dL (8.6-10.8); Carbon Dioxide 27 mEq/L (19-29); Chloride 106 mEq/L (98-109); Glucose 95 mg/dL (70-99); Osmolality,Calculated 288 (280-300); Potassium 3.9 mEq/L (3.5-4.5); Sodium 139 mEq/L (136-145); eGFR For African Americans > 60 (> 60); eGFR For Non-African Americans > 60 (> 60)
[2017-03-20] MEDS: Metoprolol XL (24 HR) Succ 25 MG TAB.ER.24H PO SCH (09:43)
[2017-03-20] MEDS: *HR* Digoxin 0.125 MG TABLET PO SCH (09:44)
[2017-03-20] MEDS: Pantoprazole 40 MG VIAL IVP SCH (09:44)
--- NOTE | 2017-03-20 15:54 | Consult Note ---
Date of Encounter: 03/20/17 Time of Encounter: 14:45 Assessment & Recommendation (1) Altered mental status Current visit: Yes Status: Acute Assessment & Recommendation: Patient is showing moderate degree of dementia, she may benefit from she will benefit from geropsychiatric evaluation. Recommend placement in assisted living to assure safety and medication compliance and support. Patient is agreeable to supportive explore her options including placement. Benzodiazepines should be avoided. Thank you for consultation Qualifiers: Altered mental status type: transient alteration of awareness Qualified Code(s): R40.4 - Transient alteration of awareness History of Present Illness Patient: new to practice Requesting Physician: Kendrick Dubose MD Reason for consult: Agitation, hallucinations History of present illness: Ms. Jones is a 81 year old female admitted for evaluation of altered mental status with increased confusion and agitation and forgetfulness. It was not clear if this changes are recent, most likely gradual over time. I reviewed the records and neurology consultation and labs and imaging studies. Patient is living alone for several years but 22 years after of her and she is not sure when she started having difficulty with memory and sleep she reports middle insomnia but also report being able to take care off her pets and gardening which is to be verified. Patient is very pleasant and conversant however showing moderate degree of cognitive impairment. She has concern related to finance and living situation and she is interested in exploring alternative living situation like assisted living. Patient has no previous history of any mental illness or treatment for mental illness from available information. CC: Kendrick Dubose MD Past Med Surg Social Fam HX - Past Medical History Medical history: atrial fibrillation, dementia, hypertension, valvular heart disease - Past Psychiatric History Psychiatric history: Reports: no psych history - Past Surgical History Surgical History: non-contributory - Social History Smoking Status: Never smoker Smokeless Tobacco Status: No Alcohol use: none Drug use: none - Family History Father Race: Family Member Ethnicity: Non- Living Status: Age at : 45 Cause of : Throat cancer Hx Family Cancer: Yes (Throat) Mother Race: Family Member Ethnicity: Non- Living Status: Age at : 79 Cause of : Stroke Hx Family Cardiac Disorders: Yes (Stroke/CVA) Brother Race: Family Member Ethnicity: Non- Living Status: Still Living Hx Family Cardiac Disorders: Yes (Heart murmur) Sister Race: Family Member Ethnicity: Non- Living Status: Still Living Hx Family Neurologic Disorders: Yes (Alzheimer's dementia) Medications & Allergies Digoxin [Lanoxin] 0.125 mg PO DAILY 03/18/17 [History] Metoprolol XL (24 HR) Succ [Toprol XL] 12.5 mg PO DAILY 03/18/17 [History] Rivaroxaban [Xarelto] 20 mg PO DAILY 03/18/17 [History] 3 Allergy/AdvReac Type Severity Reaction Status Date / Time No Known Allergies Allergy Verified 03/18/17 10:37 Review of Systems Psychiatric: Reports: confusion, memory loss, difficulty concentrating Mental Status Exam Patient orientation: Yes Person, Yes Time, Yes Place Level of alertness: Alert Patient appearance: Appropriate, Well Groomed Behavior: calm, cooperative Psychomotor activity: Slowed Eye contact: Maintains Eye Contact Mood description: Euthymic/stable, Anxious Affect description: congruent with mood, full range Speech pattern: Normal rate, Normal rhythm, Normal tone Speech volume: Normal Thought process: Linear, Goal Oriented, Circumstantial Thought content: No Suicidal ideation, No Homicidal ideation, No Overt delusions Perceptual disturbances: No Auditory hallucinations, No Visual hallucinations Attention span: Capable of Focused Attention Memory description: Immediate Impaired, Recent Impaired Patient reliability: Questionable Historian Intelligence estimate: Average Judgment: Limited Insight: Partial Results - Vital Signs Vital signs: Temp Pulse Resp BP Pulse Ox 97.5 F L 89 16 144/90 98 03/20/17 11:08 03/20/17 11:08 03/20/17 11:08 03/20/17 11:08 03/20/17 11:08 - Labs Labs: Laboratory Last Values WBC 4.2 K/mcL (4.3-11.1) L 03/20/17 07:02 RBC 4.21 M/mcL (3.82-4.97) 03/20/17 07:02 Hgb 12.9 g/dL (11.5-15.4) 03/20/17 07:02 Hct 38.5 % (35.3-44.9) 03/20/17 07:02 MCV 91.4 fL (83.0-100.0) 03/20/17 07:02 MCH 30.6 pg (28.0-33.3) 03/20/17 07:02 MCHC 33.5 g/dL (31.6-35.5) 03/20/17 07:02 RDW 13.6 % (11.5-14.5) 03/20/17 07:02 Plt Count 129 K/mcL (140-400) L 03/20/17 07:02 MPV 10.9 fL (9.4-12.4) 03/20/17 07:02 Immature Gran % 0.0 % (0-4) 03/19/17 05:00 Seg Neutrophils % 59.1 % 03/19/17 05:00 Lymphocytes % 28.5 % 03/19/17 05:00 Monocytes % 10.4 % 03/19/17 05:00 Eosinophils % 1.7 % 03/19/17 05:00 Basophils % 0.3 % 03/19/17 05:00 Neutrophils # 2.1 K/mcL (1.6-8.9) 03/19/17 05:00 Lymphocytes # 1.0 K/mcL (0.6-4.6) 03/19/17 05:00 Monocytes # 0.4 K/mcL (0.0-1.3) 03/19/17 05:00 Eosinophils # 0.1 K/mcL (0.0-0.6) 03/19/17 05:00 Basophils # 0.0 K/mcL (0.0-0.2) 03/19/17 05:00 PT 13.6 Seconds (9.4-12.1) H 03/19/17 05:00 INR 1.3 03/19/17 05:00 APTT 33.2 Seconds (26.0-36.0) 03/19/17 05:00 Sodium 139 mEq/L (136-145) 03/20/17 07:02 Potassium 3.9 mEq/L (3.5-4.5) 03/20/17 07:02 Chloride 106 mEq/L (98-109) 03/20/17 07:02 Carbon Dioxide 27 mEq/L (19-29) 03/20/17 07:02 BUN 12 mg/dL (7-20) 03/20/17 07:02 Creatinine 0.79 mg/dL (0.57-1.11) 03/20/17 07:02 Est GFR ( Amer) > 60 (> 60) 03/20/17 07:02 Est GFR (Non-Af Amer) > 60 (> 60) 03/20/17 07:02 BUN/Creatinine Ratio 15 (6-26) 03/20/17 07:02 Glucose 95 mg/dL (70-99) 03/20/17 07:02 Est Mean Plasma Glucose 111 mg/dl 03/19/17 05:00 Hemoglobin A1c 5.5 % (-5.6) 03/19/17 05:00 Calculated Osmolality 288 (280-300) 03/20/17 07:02 Calcium 9.1 mg/dL (8.6-10.8) 03/20/17 07:02 Magnesium 2.1 mg/dL (1.6-2.6) 03/19/17 05:00 Total Bilirubin 0.9 mg/dL (0.2-1.2) 03/18/17 08:31 Direct Bilirubin 0.4 mg/dL (0.0-0.5) 03/18/17 08:31 Indirect Bilirubin 0.5 mg/dL (0.0-1.2) 03/18/17 08:31 AST 26 Units/L (5-34) 03/18/17 08:31 ALT 18 Units/L (0-55) 03/18/17 08:31 Alkaline Phosphatase 69 Units/L (38-126) 03/18/17 08:31 Troponin I 0.02 ng/mL (0-0.03) 03/18/17 08:31 Serum Total Protein 7.3 g/dL (6.0-8.3) 03/18/17 08:31 Albumin 3.4 g/dL (3.5-5.0) L 03/18/17 08:31 Globulin 3.9 g/dL (2.4-3.5) H 03/18/17 08:31 Albumin/Globulin Ratio 0.9 (1.1-2.2) L 03/18/17 08:31 Triglycerides 54 mg/dL (< 150) 03/19/17 05:00 Cholesterol 143 mg/dL (< 200) 03/19/17 05:00 LDL Cholesterol, Calc 80 mg/dL (0-99) 03/19/17 05:00 VLDL Cholesterol, Calc 11 mg/dL (< 31) 03/19/17 05:00 HDL Cholesterol 52 mg/dL (40-59) 03/19/17 05:00 Cholesterol/HDL Ratio 2.8 (0-4.9) 03/19/17 05:00 TSH 7.902 mcIU/mL (0.350-4.840) H 03/18/17 08:31 Free T4 1.11 ng/dl (0.70-1.48) 03/18/17 08:31 Total T3 0.90 ng/mL (0.58-1.59) 03/18/17 08:31 Urine Color Yellow (Yellow) 03/18/17 08:36 Urine Clarity Clear (Clear) 03/18/17 08:36 Urine pH 7.5 pH Units (5.0-8.0) 03/18/17 08:36 Ur Specific [place] 1.017 (1.010-1.025) 03/18/17 08:36 Urine Protein Negative mg/dL (Neg-Trace) 03/18/17 08:36 Urine Glucose (UA) Normal mg/dL (Normal) 03/18/17 08:36 Urine Ketones Negative mg/dL (Negative) 03/18/17 08:36 Urine Blood Negative (Negative) 03/18/17 08:36 Urine Nitrite Negative (Negative) 03/18/17 08:36 Urine Bilirubin Negative (Negative) 03/18/17 08:36 Urine Urobilinogen Normal mg/dL (Normal) 03/18/17 08:36 Ur Leukocyte Esterase Negative (Negative) 03/18/17 08:36 Urine Microscopic RBC 0-3 per hpf (0-3) 03/18/17 08:36 Ur Squamous Epith Cells Few per lpf (None-Few) 03/18/17 08:36 Urine Bacteria None Seen per hpf (None-Few) 03/18/17 08:36 Hyaline Casts None Seen per lpf (None-Few) 03/18/17 08:36 Ur Culture Indicated? NO (NO) 03/18/17 08:36 Digoxin < 0.3 ng/mL (0.8-2.0) L 03/18/17 08:31 Urine Opiates Screen Negative ng/mL (Eqjijj=621) 03/18/17 08:36 Ur Barbiturates Screen Negative ng/mL (Ssjlwq=785) 03/18/17 08:36 Ur Phencyclidine Scrn Negative ng/mL (Cutoff=25) 03/18/17 08:36 Ur Amphetamines Screen Negative ng/mL (Gvblzx=8230) 03/18/17 08:36 U Benzodiazepines Scrn Negative ng/mL (Sxmlqb=904) 03/18/17 08:36 Urine Cocaine Screen Negative ng/mL (Cutoff= 300) 03/18/17 08:36 U Marijuana (THC) Screen Negative ng/mL (Cutoff = 50) 03/18/17 08:36 Ethyl Alcohol < 10 mg/dL (0-10) 03/18/17 08:31 Consult Discharge Plan - Plan Referrals: NONE,PCP [Primary Care Provider] - (unsure of d/c distination at this time. Patient is confused and is unable to tell us who her pcp is)
[2017-03-20] MEDS: *HR* Heparin 5,000 UNIT/ML VIAL SQ SCH (16:55)
--- NOTE | 2017-03-20 18:00 | Carotid Imaging Report ---
Carotid Duplex Patient Name:Dotty Jones Order Number:[id number] Procedure Date:03/18/2017 Date:1935ge:81 yrs Gender:Female Lt BP:133 / 81 mmHg Rt.BP:133 / 81 mmHgHeart Rate: Location:[facility] Room #: 2A22 Deck Lid Fitter:Kristin Alvarez RDCS Referring MD:Artemio Hassan CNP supervisor color paste mixing:Dat Jackson MD Reading MD:Theodore Olvera MD Primary Indications:Chest pain Risk Factors Yes/No Hypertension Impressions: Findings: Right distal ICA has a severe, 60-79% stenosis. Recommendations: Risk Factor Modification, Medical Therapy, and Follow up exam 12 months. Findings Carotid Duplex: Right: There is nonstenotic plaque in the right distal common carotid artery. There is smooth heterogeneous plaque. There is nonstenotic plaque in the right bifurcation. There is smooth heterogeneous plaque. There is nonstenotic plaque in the right proximal internal carotid artery. There is smooth heterogeneous plaque. There is 60-79% stenosis in the right distal internal carotid artery. There is smooth homogeneous plaque. Left: There is nonstenotic plaque in the left bifurcation. There is irregular heterogeneous plaque. There is nonstenotic plaque in the left proximal internal carotid artery. There is nonstenotic plaque in the left mid internal carotid artery. There is smooth homogeneous plaque. Prior Study: No prior study available for comparison. Carotid Results Right PSV EDV Assessment Proximal CCA 48 10 Normal Mid CCA 57 14 Normal Distal CCA 50 11 Non Stenotic Plaque Bifurcation 40 9 Non Stenotic Plaque Proximal ICA 48 15 Non Stenotic Plaque Mid ICA 56 23 Normal Distal ICA 161 54 60-79% stenosis ECA 60 14 Normal Vertebral Artery 42 11 Antegrade Flow Left PSV EDV Assessment Proximal CCA 67 19 Normal Mid CCA 65 22 Normal Distal CCA 76 21 Normal Bifurcation 78 17 Non Stenotic Plaque Proximal ICA 69 11 Non Stenotic Plaque Mid ICA 56 21 Non Stenotic Plaque Distal ICA 90 40 Normal ECA 67 9 Normal Vertebral Artery 42 9 Antegrade Flow Ratio's Right ICA/CCA Ratio: 2.82 ICA/CCA Values: 161/57 Left ICA/CCA Ratio: 1.38 ICA/CCA Values: 90/65 Updated by Theodore Olvera MD on 03/20/2017 5:52:30 PM electronically signed on 03/20/2017 5:52:45 PM with status of Final
[2017-03-21 03:32] LABS: Hematocrit 38.5 % (35.3-44.9); Hemoglobin 12.4 g/dL (11.5-15.4); Mean Corpuscular HGB Conc 32.2 g/dL (31.6-35.5); Mean Corpuscular Hemoglobin 29.5 pg (28.0-33.3); Mean Corpuscular Volume 91.7 fL (83.0-100.0); Mean Platelet Volume 11.3 fL (9.4-12.4); Platelet Count 133 K/mcL (140-400); Red Cell Distribution Width 13.6 % (11.5-14.5)
[2017-03-21 03:46] LABS: BUN/Creatinine Ratio 14 (6-26); Blood Urea Nitrogen 11 mg/dL (7-20); Carbon Dioxide 24 mEq/L (19-29); Chloride 106 mEq/L (98-109); Glucose 86 mg/dL (70-99); Osmolality,Calculated 285 (280-300); Potassium 3.9 mEq/L (3.5-4.5); Sodium 138 mEq/L (136-145); eGFR For African Americans > 60 (> 60); eGFR For Non-African Americans > 60 (> 60)
[2017-03-21] MEDS: *HR* Heparin 5,000 UNIT/ML VIAL SQ SCH ×2 (06:04→18:41)
[2017-03-21] MEDS: Levothyroxine 25 MCG TABLET PO SCH (06:04)
[2017-03-21] MEDS: *HR* Digoxin 0.125 MG TABLET PO SCH (09:19)
[2017-03-21] MEDS: Metoprolol XL (24 HR) Succ 25 MG TAB.ER.24H PO SCH (09:19)
--- NOTE | 2017-03-21 17:16 | Discharge Summary ---
<Zach Guzman Last Filed: 03/21/17 17:12> Date of Encounter: 03/21/17 Time of Encounter: 17:12 - Discharge Diagnosis (1) Altered mental status Priority: Primary Status: Acute Qualifiers: Altered mental status type: transient alteration of awareness Qualified Code(s): R40.4 - Transient alteration of awareness (2) Atrial fibrillation Priority: Secondary Status: Chronic Qualifiers: Atrial fibrillation type: chronic Qualified Code(s): I48.2 - Chronic atrial fibrillation (3) HTN (hypertension) Priority: Secondary Status: Chronic Qualifiers: Hypertension type: essential hypertension Qualified Code(s): I10 - Essential (primary) hypertension (4) Safety impairment Priority: Secondary Status: Acute (5) DVT prophylaxis Priority: Secondary Status: Acute - Discharge Medications Prescriptions: Levothyroxine [Synthroid] 25 mcg PO DAILY@0630 #30 tab Home Medications: Digoxin [Lanoxin] 0.125 mg PO DAILY 03/18/17 [History] Metoprolol XL (24 HR) Succ [Toprol Xl] 12.5 mg PO DAILY 03/18/17 [History] Rivaroxaban [Xarelto] 20 mg PO DAILY 03/18/17 [History] Levothyroxine [Synthroid] 25 mcg PO DAILY@0630 #30 tab 03/21/17 [Rx] Allergies/Adverse Reactions: 3 Allergy/AdvReac Type Severity Reaction Status Date / Time No Known Allergies Allergy Verified 03/18/17 10:37 Date of admission: 03/19/17 18:00 Primary care physician: PCP NONE Consults: 03/20/17 07:59 Consult to Psychiatry [CONS] Routine Consulting Provider: Psychiatry Carolynn Reason for Consult: progressive memory loss, hallucinations, and agitation in the last 6 months Call Completed: Yes Discharging clinician: Zach Guzman Anticipated date of discharge: 03/21/17 - Patient Status Disposition: Transfer SNF Condition: Fair Functional capacity at discharge: independent ambulation Overall status at discharge: patient is progressing back to baseline - Discharge Instructions Follow Up With: NONE,PCP [Primary Care Provider] - (unsure of d/c distination at this time. Patient is confused and is unable to tell us who her pcp is possible ecf) Forms: ED Satisfaction Letter Additional Instructions: Take your medication as prescribed Follow-up with your primary care provider Return if your symptoms worsen or return - Diet and Activity Activity: as per physical therapy Diet: low fat, low cholesterol Interval History: Patient seen and examined. Reports she feels well with no complaints. She is a little confused on why she in the hospital and what is going on around her. Denies chest pain, dyspne, cough, N/V/D, dysuria, or leg pain/swelling. Hospital course: Ms. Jones is a 81 year old female with PMH of atrial fibrillation, dementia, HTN, and valvular heart disease, presented on 03/18/17 with altered mental status. She was brought in by her brother who reports she had been more confused lately and couldn't remember doing things that she had already done. CTA head: no acute impression, mild diffuse atrophy, minimal small ischemic changes. EEG shows no abnormality. Chest x-ray showed no abnormality. She was imperically treated with IV ceftriaxone, but no source of infection was found to be causing her AMS. She was found to have low TSH and synthroid was started. During her hospitalization she continued to show signs of mental impairment, agitation, and have tangential thoughts during discussions. She was evaluated by neurology and pyschiatry, assesment resulting in moderate degree of dementia , with potential benefit from geropsychiatric evaluation. Family discussions were held and it was felt that placement would be safest for the patient. - Time Spent with Patient Total time spent providing and/or coordinating discharge services: Greater than 30 minutes - Constitutional Vitals: Temp Pulse Resp BP Pulse Ox 98.3 F 86 16 138/76 100 03/21/17 12:14 03/21/17 12:14 03/21/17 12:14 03/21/17 12:14 03/21/17 12:14 General appearance: Present: cooperative, A&O X 2, pleasant, no acute distress, underweight, answers questions appropriately - Head Head exam: Present: atraumatic, normocephalic - Eye Eye exam: Present: EOMI, conjuntiva pink, sclera anicteric - Respiratory Respiratory exam: Present: CTAB, rales. Absent: rhonchi, wheezes - Cardiovascular Cardiovascular exam: Present: RRR, +S1, +S2. Absent: diastolic murmur, systolic murmur - GI/Abdominal GI/Abdominal exam: Present: normal bowel sounds, soft. Absent: distended, rebound, tenderness - Extremities Exam Extremities exam: Present: warm, radial pulses palpable and symmetrical. Absent : pedal edema, tenderness - Neurological Exam Neurological exam: Present: alert, CN II-XII intact, no focal deficits <Kendrick Dubose - Last Filed: 03/21/17 18:00> Date of Encounter: 03/21/17 Date of admission: 03/19/17 18:00 Primary care physician: PCP NONE Consults: 03/20/17 07:59 Consult to Psychiatry [CONS] Routine Consulting Provider: Psychiatry Carolynn Reason for Consult: progressive memory loss, hallucinations, and agitation in the last 6 months Call Completed: Yes Hospital course: Ms. Jones is a 81 year old female - Time Spent with Patient Total time spent providing and/or coordinating discharge services: - Constitutional Vitals: Temp Pulse Resp BP Pulse Ox 98.1 F 108 16 134/77 100 03/21/17 17:30 03/21/17 17:30 03/21/17 17:30 03/21/17 17:30 03/21/17 17:30 - Attending Attestation I examined this patient and my medical decision-making was reviewed with the Resident Physician. I agree with the documented findings, disposition and treatment plan as described except to the extent set forth below.
[2017-03-21 17:31] VITALS: BP 134/77
--- NOTE | 2017-03-21 17:36 | Physician Discharge Referral ---
<Zach Guzman R - Last Filed: 03/21/17 17:35> [facility] Referral Info Transfer To: ECF Provider in Charge after Transfer: PCP, Other ([facility]) Institutional Level of Care: Skilled - Diagnosis (1) Altered mental status Priority: Primary Status: Acute (2) Atrial fibrillation Priority: Secondary Status: Chronic (3) HTN (hypertension) Priority: Secondary Status: Chronic (4) Safety impairment Priority: Secondary Status: Acute (5) DVT prophylaxis Priority: Secondary Status: Acute Prognosis: Fair Aware of Diagnosis: Family Aware of Prognosis: Family - Transfer Medications Prescriptions: Levothyroxine [Synthroid] 25 mcg PO DAILY@0630 #30 tab Home Medications: Digoxin [Lanoxin] 0.125 mg PO DAILY 03/18/17 [History] Metoprolol XL (24 HR) Succ [Toprol Xl] 12.5 mg PO DAILY 03/18/17 [History] Rivaroxaban [Xarelto] 20 mg PO DAILY 03/18/17 [History] Levothyroxine [Synthroid] 25 mcg PO DAILY@0630 #30 tab 03/21/17 [Rx] Allergies/Adverse Reactions: 3 Allergy/AdvReac Type Severity Reaction Status Date / Time No Known Allergies Allergy Verified 03/18/17 10:37 - Respiratory Orders Smoking Cessation: Smoking cessation has been advised. For more information, call the [facility] Line at [phone]-FVGDNOW. - Advance Directives Code Status: Full Code - Mobility Orders Ambulate - Rehabiliation Orders Rehab Potential: Fair Rehab Orders: Evaluation for Physical Therapy, Evaluation for Occupational Therapy - Diet Orders Cardiac CERTIFICATION: I certify that the transfer of the above named patient to an Extended Care Facility is necessary for the continuing treatment of the diagnosis listed. The above information is true and accurate reflection of patient's current condition. Confidential - Redisclosure prohibited without a patient's written consent. <Kendrick Dubose P - Last Filed: 03/21/17 18:00> - Respiratory Orders Smoking Cessation: Smoking cessation has been advised. For more information, call the [facility] Line at [phone]-UATGNOW. CERTIFICATION: I certify that the transfer of the above named patient to an Extended Care Facility is necessary for the continuing treatment of the diagnosis listed. The above information is true and accurate reflection of patient's current condition. Confidential - Redisclosure prohibited without a patient's written consent.
== END 2017-03-21 19:00 | DRG 884 ==
LOC: 2ANU 07:51 → EMEROO 07:51 → 2ANU 12:25
PROVIDERS: ADMIT Internal Medicine; ATTEND Internal Medicine

== ENCOUNTER 2017-04-24 07:56 | Observation (INO) ==
[2017-04-24] MEDS ORDERED: 0.9 % Sodium Chloride 1,000 ML IVC ONE (08:02)
--- NOTE | 2017-04-24 08:06 | Emergency Department Note ---
Disposition Clinical Impression: Safety impairment, Elevated TSH, Thrombocytopenia Altered mental status Qualifiers: Altered mental status type: unspecified Qualified Code(s): R41.82 - Altered mental status, unspecified Atrial fibrillation Qualifiers: Atrial fibrillation type: unspecified Qualified Code(s): I48.91 - Unspecified atrial fibrillation Leukopenia Qualifiers: Leukopenia type: unspecified Qualified Code(s): D72.819 - Decreased white blood cell count, unspecified Disposition: Admitted As Inpatient Condition: Fair Referrals: Artemio George MD [Primary Care Provider] - Forms: ED Satisfaction Letter, Work/School Release Time of Disposition: 09:56 General Adult HPI - General Chief complaint: ED General Medical Stated complaint: Right Arm Tremors/Numbness for several months Time Seen by Provider: 04/24/17 08:02 Source: patient, EMS Mode of arrival: EMS Limitations: altered mental status, age Nursing Notes Reviewed: Yes Vital Signs Reviewed: Yes - History of Present Illness HPI Narrative: Patient presents to the ED via EMS and was evaluated immediately upon arrival. EMS reports that the patient lives at home alone and called today because she woke up and was not feeling well. Patient has a history of dementia and is unable to provide much history. She states that she just does not feel well. She denies any headaches, but states that she has had a right arm tremor off and on for the last several months. She states at times her right side of her face will feel numb, but denies any numbness at this time. She states that she was working in her garden yesterday and felt fine and she went to bed at an unknown time and woke up feeling unwell. She complains of pain in both of her legs, but denies any back pain. There is no fever, chills, chest discomfort or shortness of breath. She does describe some symptoms of palpitations, but states that she just feels like her chest is fluttering. Denies any nausea, vomiting or diarrhea. - Related Data Home Medications Medication Instructions Recorded Confirmed Digoxin [Lanoxin] 0.125 mg PO DAILY 03/18/17 04/24/17 Metoprolol XL (24 HR) Succ [Toprol 12.5 mg PO DAILY 03/18/17 04/24/17 Xl] Rivaroxaban [Xarelto] 20 mg PO DAILY 03/18/17 04/24/17 Divalproex Sodium [Depakote] 125 mg PO DAILY 04/24/17 04/24/17 Donepezil [Aricept] 5 mg PO HS 04/24/17 04/24/17 Mirtazapine [Remeron] 15 mg PO HS 04/24/17 04/24/17 Previous Rx's Medication Instructions Recorded Levothyroxine [Synthroid] 25 mcg PO DAILY@0630 #30 tab 03/21/17 Allergies Allergy/AdvReac Type Severity Reaction Status Date / Time No Known Allergies Allergy Verified 03/18/17 10:37 Limitations: ROS unobtainable due to patients medical condition Constitutional: Denies: fever Cardiovascular: Reports: palpitations Respiratory: Denies: dyspnea Gastrointestinal: Denies: vomiting Neurological: Reports: weakness, confusion Past Medical History - Past Medical History Source: old records reviewed Medical history: Reports: atrial fibrillation, dementia, hypertension, valvular heart disease Surgical history: Reports: non-contributory Psychiatric history: Reports: no psych history - Social History Smoking Status: Never smoker Smokeless Tobacco Status: No Alcohol use: Reports: none Drug use: Reports: none Physical Exam - General Limitations: age General appearance: alert, in no apparent distress - Head Head exam: atraumatic, normocephalic, normal inspection - Eye Eye exam: Present: normal appearance, PERRL, EOMI. Absent: scleral icterus, conjunctival injection - ENT ENT exam: mucous membranes dry - Neck Neck exam: Present: normal inspection, full ROM, trachea midline - Chest Chest inspection: Present: normal inspection, symmetric chest wall rise - Respiratory Respiratory exam: Present: normal lung sounds bilaterally - Cardiovascular Cardiovascular exam: Present: tachycardia, irregular rhythm - Abdominal Exam Abdominal exam: Present: soft, Non-Tender. Absent: tenderness, distention, guarding, rebound, rigidity - Extremities Exam Extremities exam: Present: normal inspection, normal capillary refill. Absent: pedal edema, calf tenderness - Expanded Lower Extremity Exam Hip/Pelvis exam: Present: pelvis stable - Neurological Exam Neurological exam: Present: alert, CN II-XII intact. Absent: oriented X3 ( oriented to person and place but not time ) - Expanded Neurological Exam Speech: Present: fluid speech Cranial nerves: EOM function (II, III, IV, ): Normal, facial sensation (V): Normal, facial palsy (VII): Normal, spinal accessory function (XI): Normal, tongue deviation (XII): Normal Cerebellar function: finger to nose: Normal (tremor on RUE) Motor strength - LUE: 4/5 Motor strength - RUE: 4/5 Motor strength - LLE: 3/5 Motor strength - RLE: 4/5 Upper motor neuron exam: pasha neglect: Absent bilaterally, pronator drift: Absent bilaterally, Babinski sign: Absent bilaterally, sensory extinction: Absent bilaterally Sensory exam upper extremity: light touch: Normal Sensory exam lower extremity: light touch: Normal Coma Scale Eye Opening: Spontaneous Coma Scale Motor Response: Obeys Commands Coma Scale Verbal Response: Oriented Coma Scale Total: 15 - Psychiatric Psychiatric exam: Present: flat affect - Skin Skin exam: Present: warm, dry, intact, normal color Course Course Narrative: Patient presenting with generalized weakness and palpitations. Likely has an history of A. fib as she is regularly irregular on cardiac auscultation. We will review past medical history. History of dementia, so unsure if she is an unreliable historian or not. Will workup with head CT, labs and likely admit. We will also get social work consult because she does live at home alone. - Reevaluation(s) Reevaluation #1: Social work is also evaluated patient. Patient lives at home alone. Family was paying a caregiver $18 an hour to take care of the patient, however, the patient fired her. She also saw a new primary care physician 2 days ago who took her off all of her medications. According the family. Patient has no idea what she is currently taking. It is unclear if she has been taking her Xarelto or not. She was also previously on digoxin for A. fib and her levels are very low. We will admit her to the hospital for MRI of her brain due to her left leg weakness as well as potentially restarting her anticoagulation and digoxin as she is at higher risk for embolic stroke. We have paged the hospitalist and are awaiting callback. Time: 09:56 Vital Signs Temperature 98.2 F 04/24/17 07:57 Pulse Rate 106 04/24/17 07:57 Respiratory Rate 18 04/24/17 07:57 Blood Pressure 131/93 04/24/17 07:57 O2 Sat by Pulse Oximetry 100 04/24/17 07:57 Temperature 98.2 F 04/24/17 07:57 Pulse Rate 81 04/24/17 09:26 Respiratory Rate 16 04/24/17 09:26 Blood Pressure 115/78 04/24/17 09:26 O2 Sat by Pulse Oximetry 100 04/24/17 09:26 Oxygen Delivery Oxygen Delivery Room Air Medical Decision Making - Medical Records Medical records reviewed: Yes I reviewed the patient's medical records. - Lab Data Lab results reviewed: Yes I reviewed the patient's lab results. Result diagrams: 04/24/17 08:15 04/24/17 08:15 Lab Results 04/24/17 04/24/17 04/24/17 Range/Units 08:15 08:15 08:15 WBC 3.1 L (4.3-11.1) K/mcL RBC 4.15 (3.82-4.97) M/mcL Hgb 12.6 (11.5-15.4) g/dL Hct 37.6 (35.3-44.9) % MCV 90.6 (83.0-100.0) fL MCH 30.4 (28.0-33.3) pg MCHC 33.5 (31.6-35.5) g/dL RDW 13.4 (11.5-14.5) % Plt Count 122 L (140-400) K/mcL MPV 11.3 (9.4-12.4) fL Immature Gran % 0.0 (0-4) % Seg Neutrophils % 65.9 % Lymphocytes % 23.3 % Monocytes % 9.5 % Eosinophils % 1.0 % Basophils % 0.3 % Neutrophils # 2.0 (1.6-8.9) K/mcL Lymphocytes # 0.7 (0.6-4.6) K/mcL Monocytes # 0.3 (0.0-1.3) K/mcL Eosinophils # 0.0 (0.0-0.6) K/mcL Basophils # 0.0 (0.0-0.2) K/mcL PT 12.2 H (9.4-12.1) Seconds INR 1.1 Sodium 138 (136-145) mEq/L Potassium 3.6 (3.5-4.5) mEq/L Chloride 106 (98-109) mEq/L Carbon Dioxide 21 (19-29) mEq/L BUN 12 (7-20) mg/dL Creatinine 0.88 (0.57-1.11) mg/dL Est GFR ( Amer) > 60 (> 60) Est GFR (Non-Af Amer) > 60 (> 60) BUN/Creatinine Ratio 14 (6-26) Glucose 128 H (70-99) mg/dL Calculated Osmolality 287 (280-300) Calcium 9.0 (8.6-10.8) mg/dL Ionized Calcium 1.11 L (1.15-1.35) mmol/L Phosphorus 2.3 (2.3-4.7) mg/dL Magnesium 2.0 (1.6-2.6) mg/dL Total Bilirubin 0.8 (0.2-1.2) mg/dL AST 26 (5-34) Units/L ALT 18 (0-55) Units/L Alkaline Phosphatase 62 (38-126) Units/L Creatine Kinase 92 (29-168) Units/L Troponin I (0-0.03) ng/mL Serum Total Protein 7.1 (6.0-8.3) g/dL Albumin 3.4 L (3.5-5.0) g/dL Globulin 3.7 H (2.4-3.5) g/dL Albumin/Globulin Ratio 0.9 L (1.1-2.2) TSH 8.573 H (0.350-4.840) mcIU/mL Urine Color (Yellow) Urine Clarity (Clear) Urine pH (5.0-8.0) pH Units Ur Specific [place] (1.010-1.025) Urine Protein (Neg-Trace) mg/dL Urine Glucose (UA) (Normal) mg/dL Urine Ketones (Negative) mg/dL Urine Blood (Negative) Urine Nitrite (Negative) Urine Bilirubin (Negative) Urine Urobilinogen (Normal) mg/dL Ur Leukocyte Esterase (Negative) Ur Culture Indicated? (NO) Digoxin < 0.3 L (0.8-2.0) ng/mL 04/24/17 04/24/17 Range/Units 08:15 08:16 WBC (4.3-11.1) K/mcL RBC (3.82-4.97) M/mcL Hgb (11.5-15.4) g/dL Hct (35.3-44.9) % MCV (83.0-100.0) fL MCH (28.0-33.3) pg MCHC (31.6-35.5) g/dL RDW (11.5-14.5) % Plt Count (140-400) K/mcL MPV (9.4-12.4) fL Immature Gran % (0-4) % Seg Neutrophils % % Lymphocytes % % Monocytes % % Eosinophils % % Basophils % % Neutrophils # (1.6-8.9) K/mcL Lymphocytes # (0.6-4.6) K/mcL Monocytes # (0.0-1.3) K/mcL Eosinophils # (0.0-0.6) K/mcL Basophils # (0.0-0.2) K/mcL PT (9.4-12.1) Seconds INR Sodium (136-145) mEq/L Potassium (3.5-4.5) mEq/L Chloride (98-109) mEq/L Carbon Dioxide (19-29) mEq/L BUN (7-20) mg/dL Creatinine (0.57-1.11) mg/dL Est GFR ( Amer) (> 60) Est GFR (Non-Af Amer) (> 60) BUN/Creatinine Ratio (6-26) Glucose (70-99) mg/dL Calculated Osmolality (280-300) Calcium (8.6-10.8) mg/dL Ionized Calcium (1.15-1.35) mmol/L Phosphorus (2.3-4.7) mg/dL Magnesium (1.6-2.6) mg/dL Total Bilirubin (0.2-1.2) mg/dL AST (5-34) Units/L ALT (0-55) Units/L Alkaline Phosphatase (38-126) Units/L Creatine Kinase (29-168) Units/L Troponin I 0.01 (0-0.03) ng/mL Serum Total Protein (6.0-8.3) g/dL Albumin (3.5-5.0) g/dL Globulin (2.4-3.5) g/dL Albumin/Globulin Ratio (1.1-2.2) TSH (0.350-4.840) mcIU/mL Urine Color Yellow (Yellow) Urine Clarity Clear (Clear) Urine pH 7.5 (5.0-8.0) pH Units Ur Specific [place] 1.007 L (1.010-1.025) Urine Protein Negative (Neg-Trace) mg/dL Urine Glucose (UA) Normal (Normal) mg/dL Urine Ketones Negative (Negative) mg/dL Urine Blood Negative (Negative) Urine Nitrite Negative (Negative) Urine Bilirubin Negative (Negative) Urine Urobilinogen Normal (Normal) mg/dL Ur Leukocyte Esterase Negative (Negative) Ur Culture Indicated? NO (NO) Digoxin (0.8-2.0) ng/mL - Radiology Data Radiology results reviewed: Yes I reviewed the patient's radiology results. - EKG Data EKG #1 EKG attestation: Yes I reviewed and interpreted this EKG. EKG results narrative: A. fib, rate 97, QRS 93, QTc 431, left axis deviation, no acute ischemic changes and also has some atrial flutter-type activity and V1 and V2, but could also be related to her tremor. Shelia - Shelia Situation: Demographics, MOA Background: Presenting Complaint, Relevant PMH, Meds, & Allergies Assessment: Vital Signs, Course and respsone to treatment, Exam Concerns, Patient/Family Expectation, Pertinant Lab Results, Outstanding Labs Recommendation: Barrier(s) to disposition, Recommendation based on pending studies, treatments, or consults Shelia Report Given to: Hospitalist Shelia Repor Time: 10:51
[2017-04-24] MEDS ORDERED: 0.9 % Sodium Chloride 500 ML IVC ONE (08:08)
[2017-04-24 08:26] LABS: Basophils % 0.3 %; Hematocrit 37.6 % (35.3-44.9); Hemoglobin 12.6 g/dL (11.5-15.4); Lymphocytes # 0.7 K/mcL (0.6-4.6); Lymphocytes % 23.3 %; Mean Corpuscular HGB Conc 33.5 g/dL (31.6-35.5); Mean Corpuscular Hemoglobin 30.4 pg (28.0-33.3); Mean Corpuscular Volume 90.6 fL (83.0-100.0); Mean Platelet Volume 11.3 fL (9.4-12.4); Monocytes # 0.3 K/mcL (0.0-1.3); Monocytes % 9.5 %; Platelet Count 122 K/mcL (140-400); Red Blood Count 4.15 M/mcL (3.82-4.97); Red Cell Distribution Width 13.4 % (11.5-14.5); Segmented Neutrophils % 65.9 %
[2017-04-24 08:28] LABS: Bilirubin,Urine Negative (Negative); Blood,Urine Negative (Negative); Clarity,Urine Clear (Clear); Color,Urine Yellow (Yellow); Glucose,Urine (UA) Normal (Normal); Ketones,Urine Negative (Negative); Leukocyte Esterase,Urine Negative (Negative); Nitrite,Urine Negative (Negative); PH,Urine 7.5 pH Units (5.0-8.0); Protein,Urine Negative (Neg-Trace); Specific Gravity,Urine 1.007 (1.010-1.025); Urobilinogen,Urine Normal (Normal)
--- NOTE | 2017-04-24 08:31 | Emergency Department Note ---
START Narrative - START START: I examined this patient and my medical decision-making was reviewed with the emergency medicine resident. I agree with the documented findings, disposition and treatment plan as described except to the extent set forth below. Patient seen with emergency medicine resident Dr. Eugenio Leone, Please see a copy of his note for details of the H&P, ED evaluation, management and disposition. I have independently evaluated the patient and confirmed appropriate portions of the history and physical exam. Briefly: A 81-year-old female history of dementia by EMS for palpitations and right arm shaking. Patient's daughters in route. The patient thought the year was "1962". Patient was evaluated at [place] emergency department in January for "shakiness". Patient is neurologically nonfocal at this point in time. She does have atrial fibrillation history she is off anticoagulants. EKG shows A. fib with ventricular response rate of 97 bpm no acute ischemic changes. Patient had a CT and screening labs. Admission/placement anticipated. Provided 40 minutes of critical care services for this patient. Disposition pending
[2017-04-24 08:33] LABS: INR 1.1; Prothrombin Time 12.2 Seconds (9.4-12.1)
[2017-04-24 08:34] LABS: Ionized Calcium 1.11 mmol/L (1.15-1.35)
[2017-04-24 08:43] LABS: Alanine Aminotransferase 18 Units/L (0-55); Albumin 3.4 g/dL (3.5-5.0); Albumin/Globulin Ratio 0.9 (1.1-2.2); Alkaline Phosphatase 62 Units/L (38-126); Aspartate Amino Transferase 26 Units/L (5-34); BUN/Creatinine Ratio 14 (6-26); Bilirubin,Total 0.8 mg/dL (0.2-1.2); Blood Urea Nitrogen 12 mg/dL (7-20); Carbon Dioxide 21 mEq/L (19-29); Chloride 106 mEq/L (98-109); Creatine Kinase 92 Units/L (29-168); Globulin 3.7 g/dL (2.4-3.5); Glucose 128 mg/dL (70-99); Osmolality,Calculated 287 (280-300); Phosphorous 2.3 mg/dL (2.3-4.7); Potassium 3.6 mEq/L (3.5-4.5); Sodium 138 mEq/L (136-145); Total Protein 7.1 g/dL (6.0-8.3); eGFR For African Americans > 60 (> 60); eGFR For Non-African Americans > 60 (> 60)
[2017-04-24 09:05] LABS: Digoxin < 0.3 ng/mL (0.8-2.0); Thyroid Stimulating Hormone 8.573 mcIU/mL (0.350-4.840)
--- NOTE | 2017-04-24 11:33 | Event Note ---
Date of Encounter: 04/24/17 Time of Encounter: 11:30 1. Possible TIA Order MRI of the brain, echocardiogram, carotid ultrasound Physical therapy consult, consider neurology consult 2. Atrial fibrillation, confusion whether the patient is still taking digoxin and Xarelto Continue metoprolol 3. Dementia Continue Aricept 4. Hypertension, stable 5. Hypothyroidism, TSH is elevated Increase the thyroxine up to 50 g daily Omeprazole for GI prophylaxis and Xarelto for DVT prophylaxis. The patient will be admitted for observation, full code, time spent on this admission 40 minutes. H&P to be completed by PRIYA Saleem
[2017-04-24] MEDS ORDERED: Acetaminophen 325 MG TABLET PO PRN (11:38)
[2017-04-24] MEDS ORDERED: Naloxone 0.4 MG/ML INJ IVP PRN (11:38)
--- NOTE | 2017-04-24 12:01 | Internal Med History&Physical ---
Date of Encounter: 04/24/17 Time of Encounter: 11:58 Assessment and Plan (1) Weakness Current visit: Yes Status: Acute patient presented to the ED with vague sx of weakness. Presently appears to be no focal deficits with equal strength in all extremities. CT of head with no intracranial abnormalities. Due to patient hx dementia and unreliable hx - workup for possible TIA we will continue with neuro checks 2 obtain MRI 3 carotid Doppler 4 check lipids 5 continue with Xarelto 6 continuous chronic monitoring 7 will trend troponins (2) Dementia Current visit: No Status: Chronic 1 we will continue with home medications 2 avoid benzodiazepines 3 social service consult for discharge planning-patient lives alone has not been taking her medications she is a high risk for injury Qualifiers: Dementia type: unspecified type Dementia behavioral disturbance: without behavioral disturbance Qualified Code(s): F03.90 - Unspecified dementia without behavioral disturbance (3) Hypothyroid Current visit: No Status: Chronic TSH 8.5 we will increase synthroid to 50mcg Qualifiers: Hypothyroidism type: unspecified Qualified Code(s): E03.9 - Hypothyroidism , unspecified (4) Atrial fibrillation Current visit: Yes Status: Chronic 1 presently atrial fibrillation controlled rate. Dig levels less than 0.03 patient. In taking her medications. We will continue with digoxin as well as Xarelto Qualifiers: Atrial fibrillation type: unspecified Qualified Code(s): I48.91 - Unspecified atrial fibrillation (5) HTN (hypertension) Current visit: No Status: Chronic continue with metoprolol Qualifiers: Hypertension type: essential hypertension Qualified Code(s): I10 - Essential (primary) hypertension (6) DVT prophylaxis Current visit: No Status: Acute on Xarelto Internal Medicine - H&P: HPI Chief complaint: weakness tremor Admitted From: Emergency Dept Plans for Post Hospital Care: Home History of present illness: Ms. Jones is a 81 year old female past medical history of atrial fibrillation , valvular heart disease hypertension diverticulosis hypothyroid dementia. Information obtained from medical records hospital staff due to patient's cognitive state. According to ER records patient was brought to the emergency department per EMS she lives alone and awoke this a.m. not feeling well. She describes a history of tremor off and on for last several months she informed ER staff she had numbness of her right side of her face however does not experience the low-dose of presentation also complains of pain in both legs but denies any back pain. Also admits to some palpitations but no chest pain nausea vomiting or diarrhea or shortness of breath. Patient is confused and oriented to name only. It appears from past records she was here in February with altered mental status. She was evaluated by neurology and psychiatry resulting in moderate degree of dementia as well as treated for hypothyroidism. She was discharged to a extended care facility. ER lab work white count 2.1 hemoglobin 12.6 PT 12.2 INR 1.1 mag was [address] of head was negative for any intercurrent abnormalities checks x-ray did show some cardiomegaly She has been admitted for further workup and evaluation. Presently the patient does not appear to be in any pain or discomfort. She is oriented to name only. She is able to follow simple commands however she does have some difficulty following conversation. Cranial nerves II through XII are intact equal strength in all 4 extremities, no focal deficits noted. She denies any headaches visual disturbances or vertigo. Her lung sounds are clear heart sounds are regular S1 and S2 with no rubs, gallops murmurs noted. Abdomen soft and nontender. No pedal edema noted. EKG with atrial fibrillation/ flutter . I reviewed this case with Dr Curran who agrees with plan Past Med Surg Social Fam HX - Past Medical History Medical history: atrial fibrillation, dementia, hypertension, valvular heart disease Psychiatric history: no psych history - Past Surgical History Surgical History: non-contributory - Social History Smoking Status: Never smoker Smokeless Tobacco Status: No Alcohol use: none Drug use: none - Family History Father Family Member Ethnicity: Non- Living Status: Hx Family Cancer: Yes (Throat) Mother Family Member Ethnicity: Non- Living Status: Hx Family Cardiac Disorders: Yes (Stroke/CVA) Brother Family Member Ethnicity: Non- Living Status: Still Living Hx Family Cardiac Disorders: Yes (Heart murmur) Sister Family Member Ethnicity: Non- Living Status: Still Living Hx Family Neurologic Disorders: Yes (Alzheimer's dementia) Internal Medicine - H&P: Meds Digoxin [Lanoxin] 0.125 mg PO DAILY 03/18/17 [History] Metoprolol XL (24 HR) Succ [Toprol Xl] 12.5 mg PO DAILY 03/18/17 [History] Rivaroxaban [Xarelto] 20 mg PO DAILY 03/18/17 [History] Levothyroxine [Synthroid] 25 mcg PO DAILY@0630 #30 tab 03/21/17 [Rx] Divalproex Sodium [Depakote] 125 mg PO DAILY 04/24/17 [History] Donepezil [Aricept] 5 mg PO HS 04/24/17 [History] Mirtazapine [Remeron] 15 mg PO HS 04/24/17 [History] 3 Allergy/AdvReac Type Severity Reaction Status Date / Time No Known Allergies Allergy Verified 03/18/17 10:37 ROS unobtainable: due to mental status All Systems PM: A 10-system review of systems was performed and is negative for pertinent findings except as documented above in the HPI. - Constitutional Vitals: Temp Pulse Resp BP Pulse Ox 97.4 F L 83 16 138/83 97 04/24/17 11:38 04/24/17 11:38 04/24/17 11:38 04/24/17 11:38 04/24/17 11:38 General appearance: Present: A&O X 1 - Head Head exam: Present: atraumatic, normocephalic - Eye Eye exam: Present: PERRL, conjuntiva pink, sclera anicteric Pupils: Present: PERRL - Neck Neck exam general surgery: Present: supple, trachea midline. Absent: lymphadenopathy - Respiratory Respiratory exam: Present: CTAB. Absent: accessory muscle use, rales, rhonchi, wheezes - Cardiovascular Cardiovascular exam: Present: irregular rhythm, +S1, +S2. Absent: diastolic murmur, gallop, rubs, systolic murmur - GI/Abdominal GI/Abdominal exam: Present: normal bowel sounds, soft, no peritoneal signs. Absent: distended, tenderness - Extremities Exam Extremities exam: Present: warm, radial pulses palpable and symmetrical. Absent : calf tenderness, cyanotic, pedal edema - Neurological Exam Neurological exam: Present: CN II-XII intact, oriented X3, no focal deficits. Absent: pronater drift, facial droop, speech deficit - Skin Skin exam: Present: dry, intact Internal Med - H&P Results - Labs CBC & Chem 7: 04/24/17 08:15 04/24/17 08:15 - EKG Data EKG comments: 04/24/17 12:15 afib/aflutter - Diagnostic Studies Other Images Additional comments: Chest X-Ray 04/24/17 08:02 IMPRESSION: No acute abnormality Cardiomegaly. D/ / Prasanna Tidwell MD / Prasanna Tidwell MD Interpreting Provider: Prasanna Tidwell MD Head CT 04/24/17 08:02 IMPRESSION: No acute intracranial abnormality. D/ / 04/24/2017 09:35:07 Nacho Hamilton MD / earnold Interpreting Provider: Nacho Hamilton MD
[2017-04-24] MEDS: Metoprolol XL (24 HR) Succ 25 MG TAB.ER.24H PO SCH (15:52)
[2017-04-24] MEDS: Divalproex Sodium 125 MG CAPSULE PO SCH (15:53)
--- NOTE | 2017-04-24 17:11 | Carotid Imaging Report ---
Carotid Duplex Patient Name:Dotty Jones Order Number:[id number] Procedure Date:04/24/2017 Date:1935ge:81 yrs Gender:Female Lt BP:127 / 89 mmHg Rt.BP:126 / 71 mmHgHeart Rate: Location:[facility] Room #: 3A11 Assistant Credit Manager:Chung Will RN, RDCS Referring MD:Julisa Saleem, WHEEL PRESS OPERATOR Reading MD:Otto Quevedo MD , FACS Primary Indications:Weakness Risk Factors Yes/No Hypertension No Diabetes No Hypercholesterolemia No Smoker Previous No Hx of TIA No Hx of CVA No Anticoagulants No Hx of CAD/PTCA No Previous Vascular Surgery No Impressions: Findings: .Findings: Bilateral carotid system essentially normal. Recommendations: Test completed on 04/24/2017 at 2:10:00 pm. Findings Carotid Duplex: Right: The right proximal common carotid artery has a PSV of 46 cm/s and a EDV of 9 cm/s. The right mid common carotid artery has a PSV of 70 cm/s and a EDV of 15 cm/s. The right distal common carotid artery has a PSV of 51 cm/s and a EDV of 13 cm/s. There is nonstenotic plaque in the right bifurcation with a PSV of 47 cm/s and a EDV of 11 cm/s. There is smooth heterogeneous plaque. The right proximal internal carotid artery has a PSV of 45 cm/s and a EDV of 12 cm/s. The right mid internal carotid artery has a PSV of 65 cm/s and a EDV of 23 cm/s. The right distal internal carotid artery has a PSV of 72 cm/s and a EDV of 13 cm/s. The right eca has a PSV of 42 cm/s and a EDV of 6 cm/s. The right vertebral artery has a PSV of 39 cm/s and a EDV of 8 cm/s. Left: The left proximal common carotid artery has a PSV of 81 cm/s and a EDV of 15 cm/s. The left mid common carotid artery has a PSV of 57 cm/s and a EDV of 14 cm/s. The left distal common carotid artery has a PSV of 57 cm/s and a EDV of 19 cm/s. There is nonstenotic plaque in the left bifurcation with a PSV of 42 cm/s and a EDV of 13 cm/s. There is smooth heterogeneous plaque. The left proximal internal carotid artery has a PSV of 53 cm/s and a EDV of 15 cm/s. The left mid internal carotid artery has a PSV of 62 cm/s and a EDV of 22 cm/s. The left distal internal carotid artery has a PSV of 71 cm/s and a EDV of 20 cm/s. The left eca has a PSV of 55 cm/s and a EDV of 7 cm/s. The left vertebral artery has a PSV of 46 cm/s and a EDV of 9 cm/s. Prior Study: Changes noted compared to prior study dated: 03/18/2017. Carotid Results Right PSV EDV Assessment Proximal CCA 46 9 Normal Mid CCA 70 15 Normal Distal CCA 51 13 Normal Bifurcation 47 11 Non Stenotic Plaque Proximal ICA 45 12 Normal Mid ICA 65 23 Normal Distal ICA 72 13 Normal ECA 42 6 Normal Vertebral Artery 39 8 Normal Left PSV EDV Assessment Proximal CCA 81 15 Normal Mid CCA 57 14 Normal Distal CCA 57 19 Normal Bifurcation 42 13 Non Stenotic Plaque Proximal ICA 53 15 Normal Mid ICA 62 22 Normal Distal ICA 71 20 Normal ECA 55 7 Normal Vertebral Artery 46 9 Normal Ratio's Right ICA/CCA Ratio: 1.03 ICA/CCA Values: 72/70 Left ICA/CCA Ratio: 1.25 ICA/CCA Values: 71/57 Updated by Otto Quevedo MD, FACS on 04/24/2017 5:03:43 PM Otto Quevedo MD electronically signed on 04/24/2017 5:03:59 PM with status of Final
--- NOTE | 2017-04-24 19:50 | Electrocardiograph Report ---
[address] [place] [address] Test Date: 2017-04-24 Pat Name: Dotty Jones Department: 103 Room: 3A11 Gender: F Radiology Receptionist: LATRICE : [id number] Requested By: Eugenio Leone Order Number: [id number] Reading MD: Ryan Ortiz MD Measurements Intervals [place] Rate: 97 P: MS: 0 QRS: -31 QRSD: 93 T: -22 QT: 376 QTc: 431 Interpretive Statements ATRIAL FIBRILLATION MARKED LEFT AXIS DEVIATION POSSIBLE ANTERIOR MYOCARDIAL INFARCTION, OF INDETERMINATE AGE Electronically Signed On 04-24-2017 19:49:00 EDT by Ryan Ortiz MD
[2017-04-24] MEDS ORDERED: Mirtazapine 15 MG TABLET PO SCH (21:00)
[2017-04-25 04:54] LABS: Basophils % 0.3 %; Eosinophils # 0.1 K/mcL (0.0-0.6); Eosinophils % 1.6 %; Hematocrit 38.7 % (35.3-44.9); Hemoglobin 12.2 g/dL (11.5-15.4); Immature Granulocytes % 0.3 % (0-4); Lymphocytes # 0.9 K/mcL (0.6-4.6); Lymphocytes % 28.7 %; Mean Corpuscular HGB Conc 31.5 g/dL (31.6-35.5); Mean Corpuscular Hemoglobin 29.3 pg (28.0-33.3); Mean Platelet Volume 11.3 fL (9.4-12.4); Monocytes # 0.4 K/mcL (0.0-1.3); Monocytes % 11.8 %; Neutrophils # 1.8 K/mcL (1.6-8.9); Platelet Count 112 K/mcL (140-400); Red Blood Count 4.16 M/mcL (3.82-4.97); Red Cell Distribution Width 13.7 % (11.5-14.5); Segmented Neutrophils % 57.3 %
[2017-04-25 05:07] LABS: BUN/Creatinine Ratio 11 (6-26); Blood Urea Nitrogen 11 mg/dL (7-20); Calcium 8.9 mg/dL (8.6-10.8); Carbon Dioxide 27 mEq/L (19-29); Chloride 107 mEq/L (98-109); Cholesterol 151 mg/dL (< 200); Glucose 86 mg/dL (70-99); HDL Cholesterol 50 mg/dL (40-59); LDL Cholesterol,Calculated 91 mg/dL (0-99); Osmolality,Calculated 291 (280-300); Potassium 3.9 mEq/L (3.5-4.5); Sodium 141 mEq/L (136-145); Triglycerides 49 mg/dL (< 150); eGFR For African Americans > 60 (> 60); eGFR For Non-African Americans 55 (> 60)
[2017-04-25 07:03] VITALS: BP 110/72
[2017-04-25] MEDS: Divalproex Sodium 125 MG CAPSULE PO SCH (07:44)
[2017-04-25] MEDS: Metoprolol XL (24 HR) Succ 25 MG TAB.ER.24H PO SCH (07:44)
[2017-04-25] MEDS ORDERED: *HR* Digoxin 0.125 MG TABLET PO SCH (09:00)
--- NOTE | 2017-04-25 09:59 | Discharge Summary ---
Date of Encounter: 04/25/17 Time of Encounter: 09:57 - Discharge Diagnosis (1) Altered mental status Priority: Primary Status: Acute Comments: TIA ruled out, likely progressing dementia Qualifiers: Altered mental status type: unspecified Qualified Code(s): R41.82 - Altered mental status, unspecified (2) Dementia Priority: Primary Status: Chronic Qualifiers: Dementia type: unspecified type Dementia behavioral disturbance: without behavioral disturbance Qualified Code(s): F03.90 - Unspecified dementia without behavioral disturbance (3) Atrial fibrillation Priority: Secondary Status: Chronic Comments: noncompliant with meds Qualifiers: Atrial fibrillation type: unspecified Qualified Code(s): I48.91 - Unspecified atrial fibrillation (4) HTN (hypertension) Priority: Secondary Status: Chronic Qualifiers: Hypertension type: essential hypertension Qualified Code(s): I10 - Essential (primary) hypertension (5) Safety impairment Priority: Secondary Status: Acute (6) Elevated TSH Priority: Secondary Status: Acute Comments: hypothyroidism, increase levothyroxine dose (7) Weakness Priority: Secondary Status: Acute - Discharge Medications Prescriptions: Divalproex Sodium [Depakote] 125 mg PO DAILY 30 Days #30 tablet.dr Patel Medications: Digoxin [Lanoxin] 0.125 mg PO DAILY 03/18/17 [History] Metoprolol XL (24 HR) Succ [Toprol Xl] 12.5 mg PO DAILY 03/18/17 [History] Rivaroxaban [Xarelto] 20 mg PO DAILY 03/18/17 [History] Donepezil [Aricept] 5 mg PO HS 04/24/17 [History] Mirtazapine [Remeron] 15 mg PO HS 04/24/17 [History] Divalproex Sodium [Depakote] 125 mg PO DAILY 30 Days #30 tablet. 04/25/17 [Rx] Levothyroxine [Synthroid] 50 mcg PO DAILY@0630 tablet 04/25/17 [Rx] Allergies/Adverse Reactions: 3 Allergy/AdvReac Type Severity Reaction Status Date / Time No Known Allergies Allergy Verified 03/18/17 10:37 Procedures/tests Complete & Pending: Procedures Performed prior 72 hours Category Date Time Status MR head/brain wo con [MR] Stat MRI 04/24/17 11:41 Completed EV carotid duplex imaging BI Routine Y 04/24/17 11:56 Completed EV echocardiogram Routine Y 04/24/17 11:55 Completed Date of admission: 04/24/17 11:01 Primary care physician: Artemio George MD Consults: 04/24/17 11:47 Consult to Nutrition [CONS] Routine Comment: Consulting Provider: NUTRITION Reason for Dietary Consult: MST Score Consult to Enrollment Consultant [CONS] Routine Reason for SW Consult: Possible ECF placement, pt lives home alone 04/24/17 13:32 Consult to Physical Therapy [CONS] Routine Comment: Evaluate, develop and implement POC Reason for Consult: weakness 04/24/17 13:33 Consult to Occupational Therapy [CONS] Routine Comment: Evaluate, develop and implement POC Reason for Consult: weakness - Patient Status Disposition: Transfer SNF Condition: Fair - Discharge Instructions Follow Up With: Artemio George MD [Primary Care Provider] - Additional Instructions: Follow-up with primary care physician within the next 2 weeks. Increase dose of levothyroxine to 50 g daily. Recheck TSH in 6 weeks. - Diet and Activity Activity: increase activity as tolerated Diet: low fat, low cholesterol Hospital course: Ms. Jones is a 81 year old female with a past medical history of atrial fibrillation on Xarelto, valvular heart disease hypertension diverticulosis hypothyroidism, dementia. According to ER records the patient was brought to the emergency department per EMS, she lives alone and awoke not feeling well. She described a history of tremor off and on for last several months she informed ER staff she had numbness of her right side of her face however does not experience the low-dose of presentation also complains of pain in both legs but denies any back pain. Also admitted to some palpitations but no chest pain nausea vomiting or diarrhea or shortness of breath. Patient was confused and oriented to name only. It appears from past records she was here in February with altered mental status. She was evaluated by neurology and psychiatry resulting in moderate degree of dementia as well as treated for hypothyroidism. She was discharged to a extended care facility. ER lab work white count 2.1 hemoglobin 12.6 PT 12.2 INR 1.1 mag was [address] of head was negative for any intercurrent abnormalities checks x-ray did show some cardiomegaly EKG with atrial fibrillation/ flutter. MRI was performed and did not show any ischemia/infarct. It was not known whether the patient was compliant with her Xarelto and other medications. Echocardiogram showed an ejection fraction of 55-60%, indeterminate diastolic function due to atrial fibrillation, severely thickened mitral valve leaflets, moderate to severe mitral stenosis, moderate to severe tricuspid regurgitation. Carotid ultrasound was unremarkable. The patient's dose of levothyroxine was increased to 50 g daily from her prior dose of 25 g daily. The patient's altered mental status is most likely close by her progressing dementia. Family has agreed for the patient to be discharged to correction facility. - Time Spent with Patient Total time spent providing and/or coordinating discharge services: Greater than 30 minutes (40 min) - Constitutional Vitals: Temp Pulse Resp BP Pulse Ox 97.5 F L 95 18 110/72 95 04/25/17 06:57 04/25/17 06:57 04/25/17 06:57 04/25/17 06:57 04/25/17 06:57 General appearance: Present: A&O X 1 (Oriented only to person) - Head Head exam: Present: atraumatic, normocephalic - Eye Eye exam: Present: PERRL, conjuntiva pink, sclera anicteric Pupils: Present: PERRL - Neck Neck exam general surgery: Present: supple, trachea midline. Absent: lymphadenopathy - Respiratory Respiratory exam: Present: CTAB. Absent: accessory muscle use, rales, rhonchi, wheezes - Cardiovascular Cardiovascular exam: Present: irregular rhythm, RRR, +S1, +S2. Absent: diastolic murmur, gallop, rubs, systolic murmur - GI/Abdominal GI/Abdominal exam: Present: normal bowel sounds, soft, no peritoneal signs. Absent: distended, tenderness - Extremities Exam Extremities exam: Present: warm, radial pulses palpable and symmetrical. Absent : calf tenderness, cyanotic, pedal edema - Neurological Exam Neurological exam: Present: CN II-XII intact, no focal deficits. Absent: oriented X3, pronater drift, facial droop, speech deficit - Skin Skin exam: Present: dry, intact
--- NOTE | 2017-04-25 10:11 | Physician Discharge Referral ---
ExtendedCare Referral Info Provider in Charge after Transfer: PCP Institutional Level of Care: Skilled - Diagnosis (1) Altered mental status Status: Acute (2) Dementia Status: Chronic (3) Atrial fibrillation Status: Chronic (4) HTN (hypertension) Status: Chronic (5) Safety impairment Status: Acute (6) Elevated TSH Status: Acute (7) Weakness Status: Acute - Transfer Medications Prescriptions: Divalproex Sodium [Depakote] 125 mg PO DAILY 30 Days #30 tablet. Home Medications: Digoxin [Lanoxin] 0.125 mg PO DAILY 03/18/17 [History] Metoprolol XL (24 HR) Succ [Toprol Xl] 12.5 mg PO DAILY 03/18/17 [History] Rivaroxaban [Xarelto] 20 mg PO DAILY 03/18/17 [History] Donepezil [Aricept] 5 mg PO HS 04/24/17 [History] Mirtazapine [Remeron] 15 mg PO HS 04/24/17 [History] Divalproex Sodium [Depakote] 125 mg PO DAILY 30 Days #30 tablet. 04/25/17 [Rx] Levothyroxine [Synthroid] 50 mcg PO DAILY@0630 tablet 04/25/17 [Rx] Allergies/Adverse Reactions: 3 Allergy/AdvReac Type Severity Reaction Status Date / Time No Known Allergies Allergy Verified 03/18/17 10:37 - Respiratory Orders Smoking Cessation: Smoking cessation has been advised. For more information, call the [place] Tobacco Quit Line at 3-038-NFDF-NOW. - Advance Directives Code Status: Full Code - Diet Orders Regular House Supplement per Dietary: Follow-up with primary care physician within the next 2 weeks. Increase dose of levothyroxine to 50 g daily. Recheck TSH in 6 weeks. CERTIFICATION: I certify that the transfer of the above named patient to an Extended Care Facility is necessary for the continuing treatment of the diagnosis listed. The above information is true and accurate reflection of patient's current condition. Confidential - Redisclosure prohibited without a patient's written consent.
[2017-04-25] MEDS ORDERED: *HR* Rivaroxaban 15 MG TABLET PO SCH (18:00)
== END 2017-04-25 17:00 ==
LOC: EMEROO 07:56 → 3ANU 07:56 → SUATTDRO 11:01 → 3ANU 11:12
PROVIDERS: ADMIT Internal Medicine; ATTEND Internal Medicine

== ENCOUNTER 2017-10-20 11:15 | Observation (INO) ==
[2017-10-20] MEDS ORDERED: 0.9 % Sodium Chloride 500 ML IVC ONE (11:30)
--- NOTE | 2017-10-20 11:41 | Emergency Department Note ---
Disposition Clinical Impression: Fall from ground level, Weakness, Confusion, Mass of epiglottis Disposition: Admitted As Inpatient Condition: Fair Time of Disposition: 14:56 General Adult HPI - General Chief complaint: ED Back Pain/Injury Stated complaint: fall Time Seen by Provider: 10/20/17 11:17 Source: EMS Limitations: altered mental status Nursing Notes Reviewed: Yes Vital Signs Reviewed: Yes - History of Present Illness HPI Narrative: 81-year-old female brought in from [facility] for ground-level fall unsure whether mechanical or syncopal. No confirmed LOC. Report of patient hitting her head and complains of lower back pain as well as worsening confusion. Patient has a history of A. fib and is on xarelto. Pain Scale: 5 - Related Data Home Medications Medication Instructions Recorded Confirmed Digoxin [Lanoxin] 0.125 mg PO DAILY 03/18/17 10/20/17 Metoprolol XL (24 HR) Succ [Toprol 12.5 mg PO HS 03/18/17 10/20/17 Xl] Rivaroxaban [Xarelto] 20 mg PO DAILY 03/18/17 10/20/17 Donepezil [Aricept] 10 mg PO HS 04/24/17 10/20/17 Furosemide [Lasix] 20 mg PO QAM 10/20/17 10/20/17 Levothyroxine [Synthroid] 50 mcg PO 0630 10/20/17 10/20/17 OLANZapine [Zyprexa] 5 mg PO DAILY 10/20/17 10/20/17 Polyvinyl Alcohol [Artificial 2 drop OP HS PRN 10/20/17 10/20/17 Tears] Potassium Chloride [K-Tab ER] 10 meq PO QAM 10/20/17 10/20/17 traZODone [TraZODone] 50 mg PO HS PRN 10/20/17 10/20/17 Allergies Allergy/AdvReac Type Severity Reaction Status Date / Time No Known Allergies Allergy Verified 10/20/17 12:08 All systems ED: reviewed and negative except as stated. Review of Systems: As Per HPI Constitutional: Reports: weakness. Denies: fever, chills ENT ED: Denies: congestion Cardiovascular: Denies: chest pain Respiratory: Denies: cough Gastrointestinal: Denies: abdominal pain, nausea, vomiting, diarrhea Genitourinary: Denies: urgency, dysuria, frequency, hematuria Musculoskeletal: Reports: back pain Past Medical History - Past Medical History Attestation: Yes The following information was validated with the patient. Source: patient, nursing notes reviewed Medical history: Reports: atrial fibrillation, dementia, hypertension, thyroid disease, valvular heart disease Surgical history: Reports: non-contributory Psychiatric history: Reports: no psych history - Social History Smoking Status: Never smoker Smokeless Tobacco Status: No Alcohol use: Reports: none Drug use: Reports: none Physical Exam Vital Signs Temperature 97.5 F L 10/20/17 11:17 Pulse Rate 85 10/20/17 11:17 Respiratory Rate 18 10/20/17 11:17 Blood Pressure 119/81 10/20/17 11:17 O2 Sat by Pulse Oximetry 99 10/20/17 11:17 Temperature 97.5 F L 10/20/17 11:17 Pulse Rate 85 10/20/17 11:17 Respiratory Rate 18 10/20/17 11:17 Blood Pressure 119/81 10/20/17 11:17 O2 Sat by Pulse Oximetry 99 10/20/17 11:17 Oxygen Delivery Oxygen Delivery Room Air CONSTITUTIONAL: Well-appearing; well-nourished; A&O X 1 to herself with a GCS of 15, in no apparent distress HEAD: Normocephalic; atraumatic EYES: PERRL, no scleral icterus NOSE: The nose is normal in appearance without rhinorrhea NECK: No JVD or distended neck veins RESP: Normal chest excursion with respiration; breath sounds clear and equal bilaterally; no wheezes, rhonchi, or rales CARD: Irregular rhythm, without murmurs, rub or gallop ABD: Non-distended; non-tender, soft, without rigidity, rebound or guarding,no pulsatile mass CHEST: No pain with palpation SKIN: Normal for age and race; warm and dry without diaphoresis ; no apparent lesions EXTREMITIES: Pulses are 2 plus and equal times 4 extremities, no peripheral edema or calf muscle pain NEUROLOGICAL: Patient is alert and oriented times three. Cranial nerves III- XII are intact. Sensory and motor functions are intact. Strength is 5/5 for flexion and extension in all 4 extremities. Patellar DTRS are equal and intact. Finger to nose testing is equal and normal bilaterally. No dysdiadochokinesis - General Limitations: altered mental status General appearance: alert, in no apparent distress Course - Reevaluation(s) Reevaluation #1: No lab abnormality is for troponin, anemia, or electrolytes found. Patient currently doing well and has no complaints. Awaiting imaging results to remove c-collar if no fractures of C-spine Time: 12:29 Reevaluation #2: Advanced imaging negative for fractures or intracranial hemorrhage or other intracranial abnormality. C-collar removed. Time: 12:57 Time: 14:25 - Consultations Consultation #1: Dr. Hilario the hospitalist has accepted patient for admission to a telemetry bed Time: 14:55 Consultation #2: Discussed case with Dr. Gilbert Thomas of ENT who states will evaluate the patient states he can. He requests a dedicated CT soft tissue of the neck to get better visualization of the epiglottic mass. Somewhat he can see on current CT scanner cervical region he states looks like non Obstructing mucocele. Time: 17:00 Vital Signs Temperature 97.5 F L 10/20/17 11:17 Pulse Rate 85 10/20/17 11:17 Respiratory Rate 18 10/20/17 11:17 Blood Pressure 119/81 10/20/17 11:17 O2 Sat by Pulse Oximetry 99 10/20/17 11:17 Temperature 98.2 F 10/20/17 17:23 Pulse Rate 72 10/20/17 17:23 Respiratory Rate 15 10/20/17 17:23 Blood Pressure 167/84 10/20/17 17:32 O2 Sat by Pulse Oximetry 99 10/20/17 17:23 Oxygen Delivery Oxygen Delivery Room Air Medical Decision Making - MDM Narrative Medical decision making narrative: Patient from correction facility had a ground-level fall of unknown cause. The reports of orthostatic hypotension at the nursing facility and patient hitting her head while on spell total. Patient concern for possible cranial hemorrhage, fracture of C-spine, L-spine, sacrum with complaints of lower back and sacral pain. There are no identifiable areas of trauma with ecchymosis, edema or hematomas. Patient is on digoxin, and checked and digoxin levels as well. Patient's lab workup was clinically unremarkable. Patient's digoxin level was low. EKG was nonischemic, and advanced imaging showed no fractures of the head , cervical region, lumbar or sacral. However, an Incompletely visualized mass associated with the epiglottis per radiology. Direct visualization with laryngoscopy is recommended for further evaluation. LFTs and ammonia were negative for any elevations. Dr. Alvarado of ENT was consulted. 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 He states he will evaluate the patient tomorrow. Outside of the epiglottic mass there was no other pertinent findings on exam. Patient is confused worse than her baseline level of dementia and will be admitted for further evaluation. Patient also has weakness and is at risk for falls while being on Xarelto. This increases the patient's risk of hemorrhage. Patient was accepted for admission by Dr. Hilario the hospitalist in stable condition to telemetry bed - Lab Data Lab results reviewed: Yes I reviewed the patient's lab results. Lab results narrative: Short CBC 10/20/17 Range/Units 11:42 WBC 4.1 L (4.3-11.1) K/mcL Hgb 13.1 (11.5-15.4) g/dL Hct 40.9 (35.3-44.9) % Plt Count 146 (140-400) K/mcL Neutrophils # 2.8 (1.6-8.9) K/mcL BMP 10/20/17 Range/Units 11:42 Sodium 134 L (136-145) mEq/L Potassium 3.9 (3.5-5.1) mEq/L Chloride 102 (98-107) mEq/L Carbon Dioxide 26 (23-29) mEq/L BUN 14 (8-23) mg/dL Creatinine 0.78 (0.60-1.20) mg/dL Glucose 99 (70-105) mg/dL Calcium 9.0 (8.6-10.3) mg/dL Cardiac Enzymes 10/20/17 Range/Units 11:42 Troponin I < 0.03 (< 0.04) ng/mL Liver Function 10/20/17 Range/Units 13:11 Total Bilirubin 0.6 (0.3-1.0) mg/dL Direct Bilirubin 0.6 H (0.0-0.2) mg/dL AST 18 (13-39) Units/L ALT 15 (7-52) Units/L Alkaline Phosphatase 70 (34-104) Units/L Albumin 3.8 (3.5-5.7) g/dL Result diagrams: 10/20/17 11:42 10/20/17 11:42 Lab Results 10/20/17 10/20/17 10/20/17 Range/Units 11:20 11:42 11:42 WBC 4.1 L (4.3-11.1) K/mcL RBC 4.39 (3.82-4.97) M/mcL Hgb 13.1 (11.5-15.4) g/dL Hct 40.9 (35.3-44.9) % MCV 93.2 (83.0-100.0) fL MCH 29.8 (28.0-33.3) pg MCHC 32.0 (31.6-35.5) g/dL RDW 13.3 (11.5-14.5) % Plt Count 146 (140-400) K/mcL MPV 11.8 (9.4-12.4) fL Immature Gran % 0.2 (0-4) % Seg Neutrophils % 68.1 % Lymphocytes % 21.0 % Monocytes % 9.8 % Eosinophils % 0.7 % Basophils % 0.2 % Neutrophils # 2.8 (1.6-8.9) K/mcL Lymphocytes # 0.9 (0.6-4.6) K/mcL Monocytes # 0.4 (0.0-1.3) K/mcL Eosinophils # 0.0 (0.0-0.6) K/mcL Basophils # 0.0 (0.0-0.2) K/mcL APTT 32.9 (26.0-36.0) Seconds Sodium (136-145) mEq/L Potassium (3.5-5.1) mEq/L Chloride (98-107) mEq/L Carbon Dioxide (23-29) mEq/L BUN (8-23) mg/dL Creatinine (0.60-1.20) mg/dL Est GFR ( Amer) (> 60) Est GFR (Non-Af Amer) (> 60) BUN/Creatinine Ratio (6-26) Glucose (70-105) mg/dL POC Glucose 120 H (58-89) Calculated Osmolality (280-300) Calcium (8.6-10.3) mg/dL Total Bilirubin (0.3-1.0) mg/dL Direct Bilirubin (0.0-0.2) mg/dL Indirect Bilirubin (0.0-1.2) mg/dL AST (13-39) Units/L ALT (7-52) Units/L Alkaline Phosphatase (34-104) Units/L Ammonia (16-53) mcmol/L Troponin I (< 0.04) ng/mL Serum Total Protein (6.4-8.9) g/dL Albumin (3.5-5.7) g/dL Globulin (2.4-3.5) g/dL Albumin/Globulin Ratio (1.1-2.2) Digoxin (0.8-2.0) ng/mL 10/20/17 10/20/17 10/20/17 Range/Units 11:42 13:11 13:11 WBC (4.3-11.1) K/mcL RBC (3.82-4.97) M/mcL Hgb (11.5-15.4) g/dL Hct (35.3-44.9) % MCV (83.0-100.0) fL MCH (28.0-33.3) pg MCHC (31.6-35.5) g/dL RDW (11.5-14.5) % Plt Count (140-400) K/mcL MPV (9.4-12.4) fL Immature Gran % (0-4) % Seg Neutrophils % % Lymphocytes % % Monocytes % % Eosinophils % % Basophils % % Neutrophils # (1.6-8.9) K/mcL Lymphocytes # (0.6-4.6) K/mcL Monocytes # (0.0-1.3) K/mcL Eosinophils # (0.0-0.6) K/mcL Basophils # (0.0-0.2) K/mcL APTT (26.0-36.0) Seconds Sodium 134 L (136-145) mEq/L Potassium 3.9 (3.5-5.1) mEq/L Chloride 102 (98-107) mEq/L Carbon Dioxide 26 (23-29) mEq/L BUN 14 (8-23) mg/dL Creatinine 0.78 (0.60-1.20) mg/dL Est GFR ( Amer) > 60 (> 60) Est GFR (Non-Af Amer) > 60 (> 60) BUN/Creatinine Ratio 18 (6-26) Glucose 99 (70-105) mg/dL POC Glucose (58-89) Calculated Osmolality 279 L (280-300) Calcium 9.0 (8.6-10.3) mg/dL Total Bilirubin 0.6 (0.3-1.0) mg/dL Direct Bilirubin 0.6 H (0.0-0.2) mg/dL Indirect Bilirubin 0.0 (0.0-1.2) mg/dL AST 18 (13-39) Units/L ALT 15 (7-52) Units/L Alkaline Phosphatase 70 (34-104) Units/L Ammonia 22 (16-53) mcmol/L Troponin I < 0.03 (< 0.04) ng/mL Serum Total Protein 7.2 (6.4-8.9) g/dL Albumin 3.8 (3.5-5.7) g/dL Globulin 3.4 (2.4-3.5) g/dL Albumin/Globulin Ratio 1.1 (1.1-2.2) Digoxin 0.7 L (0.8-2.0) ng/mL - Radiology Data Radiology results reviewed: Yes I reviewed the patient's radiology results. Chest X-Ray 10/20/17 11:30 IMPRESSION: Stable cardiomegaly. Stable examination without acute focal process. D/ / Mirza Lund MD / Mirza Lund MD Interpreting Provider: Mirza Lund MD Cervical Spine CT 10/20/17 11:31 IMPRESSION: 1. No CT evidence for acute intracranial process. 2. Multilevel degenerative disc disease and hypertrophic degenerative changes of the cervical spine, but no CT evidence for acute osseous abnormality. 3. 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 Direct visualization with laryngoscopy is recommended for further evaluation. D/ / Alfonzo Colón / Alfonzo Colón Interpreting Provider: Alfonzo Colón Head CT 10/20/17 11:31 IMPRESSION: 1. No CT evidence for acute intracranial process. 2. Multilevel degenerative disc disease and hypertrophic degenerative changes of the cervical spine, but no CT evidence for acute osseous abnormality. 3. 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 Direct visualization with laryngoscopy is recommended for further evaluation. D/ / Alfonzo Colón / Alfonzo Colón Interpreting Provider: Alfonzo Colón Lumbar Spine CT 10/20/17 11:37 IMPRESSION: No evidence of acute fracture or malalignment of the lumbar spine. Multilevel disc and facet degenerative changes as described above. D/ / Mirza Lund MD / Mirza Lund MD Interpreting Provider: Mirza Lund MD Pelvis CT 10/20/17 11:37 IMPRESSION: No acute abnormalities are identified. If there is persistent clinical concern or difficulty weight bearing consider MRI evaluation. Degenerative changes to both hips, both SI joints and to the visualized lower lumbar spine. Diffuse bone demineralization. D/ / 10/20/2017 12:40:48 Bryce Welsh MD / babak Interpreting Provider: Bryce Welsh MD - EKG Data EKG #1 EKG attestation: Yes I reviewed and interpreted this EKG. EKG results narrative: EKG taken 10/20/2017 1126 hrs. shows A. fib at a rate of 63 bpm with no acute ST elevations or depressions in leads, no QRS widening, or QT prolongation. When compared to previous EKG taken 04/24/2017, no clinical change appreciated.
[2017-10-20 11:52] LABS: Basophils % 0.2 %; Eosinophils % 0.7 %; Hematocrit 40.9 % (35.3-44.9); Hemoglobin 13.1 g/dL (11.5-15.4); Immature Granulocytes % 0.2 % (0-4); Lymphocytes # 0.9 K/mcL (0.6-4.6); Mean Corpuscular Hemoglobin 29.8 pg (28.0-33.3); Mean Corpuscular Volume 93.2 fL (83.0-100.0); Mean Platelet Volume 11.8 fL (9.4-12.4); Monocytes # 0.4 K/mcL (0.0-1.3); Monocytes % 9.8 %; Neutrophils # 2.8 K/mcL (1.6-8.9); Platelet Count 146 K/mcL (140-400); Red Blood Count 4.39 M/mcL (3.82-4.97); Red Cell Distribution Width 13.3 % (11.5-14.5); Segmented Neutrophils % 68.1 %
[2017-10-20 12:12] LABS: Troponin I < 0.03 ng/mL (< 0.04)
[2017-10-20 12:15] LABS: BUN/Creatinine Ratio 18 (6-26); Blood Urea Nitrogen 14 mg/dL (8-23); Carbon Dioxide 26 mEq/L (23-29); Chloride 102 mEq/L (98-107); Glucose 99 mg/dL (70-105); Osmolality,Calculated 279 (280-300); Potassium 3.9 mEq/L (3.5-5.1); Sodium 134 mEq/L (136-145); eGFR For African Americans > 60 (> 60); eGFR For Non-African Americans > 60 (> 60)
--- NOTE | 2017-10-20 12:50 | Emergency Department Note ---
Disposition Clinical Impression: Fall from ground level, Weakness Disposition: Admitted As Inpatient Condition: Fair Referrals: NONE,PCP [Primary Care Provider] - Forms: ED Satisfaction Letter General Adult HPI - General Chief complaint: ED Back Pain/Injury Stated complaint: fall Time Seen by Provider: 10/20/17 11:17 Source: EMS Limitations: altered mental status - History of Present Illness Pain Scale: 5 - Related Data Home Medications Medication Instructions Recorded Confirmed Digoxin [Lanoxin] 0.125 mg PO DAILY 03/18/17 10/20/17 Metoprolol XL (24 HR) Succ [Toprol 12.5 mg PO HS 03/18/17 10/20/17 Xl] Rivaroxaban [Xarelto] 20 mg PO DAILY 03/18/17 10/20/17 Donepezil [Aricept] 10 mg PO HS 04/24/17 10/20/17 Furosemide [Lasix] 20 mg PO QAM 10/20/17 10/20/17 Levothyroxine [Synthroid] 50 mcg PO 0630 10/20/17 10/20/17 OLANZapine [Zyprexa] 5 mg PO DAILY 10/20/17 10/20/17 Polyvinyl Alcohol [Artificial 2 drop OP HS PRN 10/20/17 10/20/17 Tears] Potassium Chloride [K-Tab ER] 10 meq PO QAM 10/20/17 10/20/17 traZODone [TraZODone] 50 mg PO HS PRN 10/20/17 10/20/17 Allergies Allergy/AdvReac Type Severity Reaction Status Date / Time No Known Allergies Allergy Verified 10/20/17 12:08 Musculoskeletal: Reports: back pain Past Medical History - Past Medical History Medical history: Reports: atrial fibrillation, dementia, hypertension, thyroid disease, valvular heart disease Surgical history: Reports: non-contributory Psychiatric history: Reports: no psych history - Social History Smoking Status: Never smoker Smokeless Tobacco Status: No Alcohol use: Reports: none Drug use: Reports: none Physical Exam - General Limitations: altered mental status General appearance: alert, in no apparent distress Course Vital Signs Temperature 97.5 F L 10/20/17 11:17 Pulse Rate 85 10/20/17 11:17 Respiratory Rate 18 10/20/17 11:17 Blood Pressure 119/81 10/20/17 11:17 O2 Sat by Pulse Oximetry 99 10/20/17 11:17 Temperature 97.5 F L 10/20/17 11:17 Pulse Rate 75 10/20/17 12:11 Respiratory Rate 18 10/20/17 12:11 Blood Pressure 141/92 10/20/17 12:11 O2 Sat by Pulse Oximetry 98 10/20/17 12:11 Oxygen Delivery Oxygen Delivery Room Air Medical Decision Making - Lab Data Result diagrams: 10/20/17 11:42 10/20/17 11:42 Lab Results 10/20/17 10/20/17 10/20/17 Range/Units 11:42 11:42 11:42 WBC 4.1 L (4.3-11.1) K/mcL RBC 4.39 (3.82-4.97) M/mcL Hgb 13.1 (11.5-15.4) g/dL Hct 40.9 (35.3-44.9) % MCV 93.2 (83.0-100.0) fL MCH 29.8 (28.0-33.3) pg MCHC 32.0 (31.6-35.5) g/dL RDW 13.3 (11.5-14.5) % Plt Count 146 (140-400) K/mcL MPV 11.8 (9.4-12.4) fL Immature Gran % 0.2 (0-4) % Seg Neutrophils % 68.1 % Lymphocytes % 21.0 % Monocytes % 9.8 % Eosinophils % 0.7 % Basophils % 0.2 % Neutrophils # 2.8 (1.6-8.9) K/mcL Lymphocytes # 0.9 (0.6-4.6) K/mcL Monocytes # 0.4 (0.0-1.3) K/mcL Eosinophils # 0.0 (0.0-0.6) K/mcL Basophils # 0.0 (0.0-0.2) K/mcL APTT 32.9 (26.0-36.0) Seconds Sodium 134 L (136-145) mEq/L Potassium 3.9 (3.5-5.1) mEq/L Chloride 102 (98-107) mEq/L Carbon Dioxide 26 (23-29) mEq/L BUN 14 (8-23) mg/dL Creatinine 0.78 (0.60-1.20) mg/dL Est GFR ( Amer) > 60 (> 60) Est GFR (Non-Af Amer) > 60 (> 60) BUN/Creatinine Ratio 18 (6-26) Glucose 99 (70-105) mg/dL Calculated Osmolality 279 L (280-300) Calcium 9.0 (8.6-10.3) mg/dL Troponin I < 0.03 (< 0.04) ng/mL Attestation Statement - Attestation Attestation: I examined this patient and my medical decision-making was reviewed with the Resident Physician. I agree with the documented findings, disposition and treatment plan as described except to the extent set forth below. 81 lennox old female presents t othe ED s/p unwtinessed fall and is a poor historian and does not remeber falling or hitting her head and otherwise states that she has pain in her lower back and hips. Patinet will be evalautd with syncope workup cardiopulmonary and CT of injured areas.
[2017-10-20 13:41] LABS: Albumin 3.8 g/dL (3.5-5.7); Albumin/Globulin Ratio 1.1 (1.1-2.2); Bilirubin,Direct 0.6 mg/dL (0.0-0.2); Bilirubin,Total 0.6 mg/dL (0.3-1.0); Globulin 3.4 g/dL (2.4-3.5); Total Protein 7.2 g/dL (6.4-8.9)
[2017-10-20 13:56] LABS: Digoxin 0.7 ng/mL (0.8-2.0)
[2017-10-20] MEDS ORDERED: Naloxone 0.4 MG/ML INJ IVP PRN (16:21)
[2017-10-20] MEDS ORDERED: Acetaminophen 325 MG TABLET PO PRN (16:21)
[2017-10-20] MEDS ORDERED: Artificial Tears SOLN 15 ML BOTTLE OP PRN (16:28)
--- NOTE | 2017-10-20 16:30 | Internal Med History&Physical ---
Date of Encounter: 10/20/17 Time of Encounter: 16:00 Assessment and Plan (1) Fall from ground level Current visit: Yes Status: Acute Patient currently stable. senior care vital signs reviewed, positive for orthostatic hypotension, which is the probable reason for fall. Multiple trauma imaging studies in the emergency room are negative for acute fracture or dislocation. 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 Continue IV hydration, supportive care, fall precautions. Hold antihypertensives for now. Bilateral carotid Doppler study in March 2017 showed essentially normal carotid arteries. Echocardiogram in March 2017 showed significant valvular heart disease, will consult cardiology, as mentioned below. (2) Valvular heart disease Current visit: Yes Status: Chronic Echocardiogram from March 2017 shows preserved ejection fraction, severely dilated left atrium, moderate to severe mitral stenosis and tricuspid regurgitation, mild pulmonary hypertension. Patient has been discharged to longterm, on Xarelto. Does not have outpatient cardiology visits or testing. senior care paperwork state that patient is full code at this time. We will consult cardiology for further evaluation as this patient is on Xarelto for valvular atrial fibrillation. Hold Lasix for now due to orthostatic hypotension. (3) Atrial fibrillation Current visit: Yes Status: Chronic Currently rate controlled. EKG reviewed independently, irregular narrow complex rhythm, atrial fibrillation. Continue digoxin. Hold metoprolol for now. Noted to be on anticoagulation with Xarelto, cardiology evaluation as mentioned above. Qualifiers: Atrial fibrillation type: chronic Qualified Code(s): I48.2 - Chronic atrial fibrillation (4) Dementia Current visit: Yes Status: Chronic continue home meds- Aricept, Trazodone, Zyprexa; Qualifiers: Dementia type: Alzheimer's disease Alzheimer's disease onset: late-onset Dementia behavioral disturbance: with behavioral disturbance Qualified Code(s) : G30.1 - Alzheimer's disease with late onset; F02.81 - Dementia in other diseases classified elsewhere with behavioral disturbance; F02.81 - Dementia in other diseases classified elsewhere with behavioral disturbance; F02.81 - Dementia in other diseases classified elsewhere with behavioral disturbance (5) HTN (hypertension) Current visit: Yes Status: Chronic Hold antihypertensives for now due to orthostatic hypotension. Monitor blood pressure closely. Qualifiers: Hypertension type: essential hypertension Qualified Code(s): I10 - Essential (primary) hypertension (6) Hypothyroid Current visit: Yes Status: Chronic resume levothyroxine. Check TSH. Qualifiers: Hypothyroidism type: unspecified Qualified Code(s): E03.9 - Hypothyroidism , unspecified Internal Medicine - H&P: HPI Chief complaint: Fall Admitted From: Emergency Dept Plans for Post Hospital Care: Transfer Place Change [facility] History of present illness: Ms. Jones is a 81 year old female with history of significant dementia and memory loss, was sent by longterm after having an unwitnessed fall and noted to have orthostatic hypotension. Patient is unable to provide any history due to dementia, does not remember having a fall or the reason for admission. Denies chest pain, abdominal pain, vomiting or diarrhea at this time. Per longterm notes, patient was noted to have an unwitnessed fall with possible head injury. Vital signs at the time were positive for orthostatic hypotension with significantly low blood pressure on standing up. She is noted to be on anticoagulation with Xarelto for chronic atrial fibrillation. Past Med Surg Social Fam HX - Past Medical History Medical history: atrial fibrillation, CHF (valvular heart disease), dementia, hypertension, thyroid disease, valvular heart disease Psychiatric history: no psych history - Past Surgical History Surgical History: non-contributory (unable to obtain due to patient's mental status) - Social History Smoking Status: Never smoker Smokeless Tobacco Status: No Alcohol use: none Drug use: none Current living situation: [facility] Activity Level: Independent ambulation, Uses cane/walker Recent Out of Country Travel Within the Last 8 Weeks: No Exposure or Possible Exposure to Illness During Travel: No - Family History Father Family Member Ethnicity: Non- Living Status: Hx Family Cancer: Yes (Throat) Mother Family Member Ethnicity: Non- Living Status: Hx Family Cardiac Disorders: Yes (Stroke/CVA) Brother Family Member Ethnicity: Non- Living Status: Still Living Hx Family Cardiac Disorders: Yes (Heart murmur) Sister Family Member Ethnicity: Non- Living Status: Still Living Hx Family Neurologic Disorders: Yes (Alzheimer's dementia) Internal Medicine - H&P: Meds Digoxin [Lanoxin] 0.125 mg PO DAILY 03/18/17 [History] Metoprolol XL (24 HR) Succ [Toprol Xl] 12.5 mg PO HS 03/18/17 [History] Rivaroxaban [Xarelto] 20 mg PO DAILY 03/18/17 [History] Donepezil [Aricept] 10 mg PO HS 04/24/17 [History] Furosemide [Lasix] 20 mg PO QAM 10/20/17 [History] Levothyroxine [Synthroid] 50 mcg PO 0630 10/20/17 [History] OLANZapine [Zyprexa] 5 mg PO DAILY 10/20/17 [History] Polyvinyl Alcohol [Artificial Tears] 2 drop OP HS PRN 10/20/17 [History] Potassium Chloride [K-Tab ER] 10 meq PO QAM 10/20/17 [History] traZODone [TraZODone] 50 mg PO HS PRN 10/20/17 [History] 3 Allergy/AdvReac Type Severity Reaction Status Date / Time No Known Allergies Allergy Verified 10/20/17 12:08 ROS unobtainable: due to mental status All Systems PM: A 10-system review of systems was performed and is negative for pertinent findings except as documented above in the HPI. - Constitutional Constitutional: no chills, no fever(s), no night sweats - EENT Eyes: no change in vision, no discharge, no pain, no photophobia Ears: no ear discharge, no ear pain, no tinnitus Nose, mouth and throat: no dysphagia, no nasal discharge, no neck pain, no sore throat - Cardiovascular Cardiovascular ROS IM: irregular heart rhythm, no chest pain, no diaphoresis, no dyspnea, no lightheadedness, no palpitations, no syncope - Respiratory Respiratory: no cough, no dyspnea, no wheezing, no excessive phlegm production - Gastrointestinal Gastrointestinal: no abdominal pain, no diarrhea, no hematemesis, no hematochezia, no melena, no nausea, no vomiting - Genitourinary Genitourinary: no change in urinary stream, no dysuria, no flank pain, no hematuria - Musculoskeletal Musculoskeletal ROS IM: no numbness, no tingling - Integumentary Integumentary IM: no rash, no unusual bruising - Neurological Neurological ROS: frequent falls, no confusion, no convulsions, no focal weakness, no numbness, no tingling, no tremor(s) - Hematologic/Lymphatic Hematologic/Lymphatic: no easy bruising - Constitutional Vitals: Temp Pulse Resp BP Pulse Ox 97.5 F L 76 18 122/89 97 10/20/17 11:17 10/20/17 14:36 10/20/17 14:36 10/20/17 14:36 10/20/17 14:36 General appearance: Present: A&O X 1 (poor memory). Absent: answers questions appropriately - Respiratory Respiratory exam: Present: CTAB. Absent: accessory muscle use, rales, rhonchi, wheezes - Cardiovascular Cardiovascular exam: Present: irregular rhythm, +S1, +S2. Absent: diastolic murmur, gallop, rubs, systolic murmur - GI/Abdominal GI/Abdominal exam: Present: normal bowel sounds, soft, no peritoneal signs. Absent: distended, tenderness - Extremities Exam Extremities exam: Present: full ROM, warm, radial pulses palpable and symmetrical. Absent: calf tenderness, cyanotic, pedal edema - Neurological Exam Neurological exam: Present: altered, no focal deficits. Absent: pronater drift , facial droop, speech deficit Internal Med - H&P Results - Labs CBC & Chem 7: 10/20/17 11:42 10/20/17 11:42
[2017-10-20] MEDS ORDERED: traZODone 50 MG TABLET PO PRN (21:00)
[2017-10-20] MEDS: 0.9 % Sodium Chloride 1,000 ML IVC SCH (21:43)
[2017-10-21 07:27] LABS: Basophils % 0.3 %; Eosinophils % 1.3 %; Hematocrit 40.2 % (35.3-44.9); Hemoglobin 12.8 g/dL (11.5-15.4); Immature Granulocytes % 0.3 % (0-4); Lymphocytes # 0.7 K/mcL (0.6-4.6); Lymphocytes % 24.2 %; Mean Corpuscular HGB Conc 31.8 g/dL (31.6-35.5); Mean Corpuscular Hemoglobin 29.6 pg (28.0-33.3); Mean Corpuscular Volume 92.8 fL (83.0-100.0); Mean Platelet Volume 11.9 fL (9.4-12.4); Monocytes # 0.3 K/mcL (0.0-1.3); Monocytes % 10.3 %; Neutrophils # 1.9 K/mcL (1.6-8.9); Platelet Count 133 K/mcL (140-400); Red Blood Count 4.33 M/mcL (3.82-4.97); Red Cell Distribution Width 13.2 % (11.5-14.5); Segmented Neutrophils % 63.6 %
[2017-10-21 07:41] LABS: BUN/Creatinine Ratio 13 (6-26); Blood Urea Nitrogen 10 mg/dL (8-23); Calcium 9.2 mg/dL (8.6-10.3); Carbon Dioxide 26 mEq/L (23-29); Chloride 105 mEq/L (98-107); Glucose 85 mg/dL (70-105); Osmolality,Calculated 284 (280-300); Potassium 3.8 mEq/L (3.5-5.1); Sodium 138 mEq/L (136-145); eGFR For African Americans > 60 (> 60); eGFR For Non-African Americans > 60 (> 60)
[2017-10-21 07:45] LABS: Thyroid Stimulating Hormone 2.456 mcIU/mL (0.340-5.600)
[2017-10-21] MEDS: OLANZapine 5 MG TAB.RAPDIS PO SCH (08:29)
[2017-10-21] MEDS: *HR* Digoxin 0.125 MG TABLET PO SCH (08:29)
[2017-10-21] MEDS ORDERED: *HR* Rivaroxaban 10 MG TABLET PO SCH (09:00)
--- NOTE | 2017-10-21 09:22 | Electrocardiograph Report ---
[facility] Test Date: 2017-10-20 Pat Name: Dotty Jones Department: 102 Room: 3A45 Gender: F Behavioral Health Care Manager: Msc : 1935 Requested By: Sixto Garcia Order Number: [id number] Reading MD: Eliceo Marrero MD Measurements Intervals [place] Rate: 63 P: AL: 0 QRS: -9 QRSD: 95 T: -4 QT: 392 QTc: 400 Interpretive Statements ATRIAL FIBRILLATION INFERIOR MYOCARDIAL INFARCTION [40+ ms Q WAVE AND/OR ST/T ABNORMALITY IN II/aVF], PROBABLY OLD Electronically Signed On 10-21-2017 9:21:15 EDT by Eliceo Marrero MD
--- NOTE | 2017-10-21 11:05 | Cardiology Consult Note ---
Date of Encounter: 10/21/17 Time of Encounter: 11:05 Assessment and Plan (1) Atrial fibrillation Current Visit: Yes Status: Chronic Known, reported chronic A-Fib. Rate controlled on digoxin. TTE 03/2017 EF 55-60%, moderate-severe mitral stenosis--valvular A-Fib. Was anticoagulated on Xarelto. Significant dementia, sustained fall at [facility], which pt cannot recall. [id number] (Age, HTN). High CVA risk. However, given her advanced age, dementia, high falls risk with recent fall, would recommend ASA only for anticoagulation--ASA 81mg daily. Stop Xarelto, as should not be used in valvular A-Fib. Not a good Coumadin candidate as above. Anticipate sign off once seen and evaluated by Dr. Barragan. Qualifiers: Atrial fibrillation type: chronic Qualified Code(s): I48.2 - Chronic atrial fibrillation (2) Valvular heart disease Current Visit: Yes Status: Chronic TTE 03/2018 moderate-severe mitral stenosis, moderate-severe tricuspid regurgitation. Given pt's age and dementia, likely a poor candidate for intervention. Will further discuss with Dr. Barragan. Discussion w patient/family: The assessment and plan as outlined above was discussed with the patient and/or family members who expressed understanding and agreement. All questions were answered. Thank you for involving us in the care of your patient. Please call with any questions. I will discuss all the above with Dr. Barragan and make changes as necessary. History of Present Illness Consult date: 10/21/17 Requesting physician: Stephie Vogt Consult reason: Anticoagulation recommendations Chief complaint: fall History of present illness: Ms. Jones is a 81 year old female with history of significant dementia and memory loss, A-Fib, valvular disease, reportedly sent from [facility] after having an unwitnessed fall and noted to have orthostatic hypotension. Patient is unable to provide any history due to dementia, does not remember having a fall or the reason for admission. Denies chest pain or dyspnea at this time. It is reported that Vital signs at the time were positive for orthostatic hypotension , but negative orthostatics on presentation. Troponin negative x 1. Cardiology was consulted for anticoagulation recommendations, as pt is on a novel agent-- xarelto, and has valvular A-Fib. TTE 03/2017 EF 55-60%, but with moderate-severe mitral stenosis. Also noted severely dilated LA, moderate-severe TR. Past Med Surg Social Fam HX - Past Medical History Medical history: atrial fibrillation, dementia, hypertension, thyroid disease, valvular heart disease Psychiatric history: no psych history - Past Surgical History Surgical History: non-contributory - Social History Smoking Status: Never smoker Smokeless Tobacco Status: No Alcohol use: none Drug use: none - Family History Father Family Member Ethnicity: Non- Living Status: Hx Family Cancer: Yes (Throat) Mother Family Member Ethnicity: Non- Living Status: Hx Family Cardiac Disorders: Yes (Stroke/CVA) Brother Family Member Ethnicity: Non- Living Status: Still Living Hx Family Cardiac Disorders: Yes (Heart murmur) Sister Family Member Ethnicity: Non- Living Status: Still Living Hx Family Neurologic Disorders: Yes (Alzheimer's dementia) Medications and Allergies Digoxin [Lanoxin] 0.125 mg PO DAILY 03/18/17 [History] Metoprolol XL (24 HR) Succ [Toprol Xl] 12.5 mg PO HS 03/18/17 [History] Rivaroxaban [Xarelto] 20 mg PO DAILY 03/18/17 [History] Donepezil [Aricept] 10 mg PO HS 04/24/17 [History] Furosemide [Lasix] 20 mg PO QAM 10/20/17 [History] Levothyroxine [Synthroid] 50 mcg PO 0630 10/20/17 [History] OLANZapine [Zyprexa] 5 mg PO DAILY 10/20/17 [History] Polyvinyl Alcohol [Artificial Tears] 2 drop OP HS PRN 10/20/17 [History] Potassium Chloride [K-Tab ER] 10 meq PO QAM 10/20/17 [History] traZODone [TraZODone] 50 mg PO HS PRN 10/20/17 [History] 3 Allergy/AdvReac Type Severity Reaction Status Date / Time No Known Allergies Allergy Verified 10/20/17 12:08 ROS unobtainable: due to mental status All Systems Review: The remainder of the systems were reviewed and are negative Physical Examination Vital Signs, Last 4 Hours Temp Pulse Resp BP Pulse Ox 10/21/17 10:45 97.9 F 97 16 130/74 97 Vital Signs Temp Pulse Resp BP BP BP Pulse Ox 10/21/17 10:45 97.9 F 97 16 130/74 97 10/21/17 07:00 97.6 F 68 16 152/89 96 10/21/17 03:19 97.4 F L 63 15 146/94 97 10/20/17 21:55 97 10/20/17 19:54 97.9 F 88 15 176/86 97 10/20/17 17:32 167/84 169/93 10/20/17 17:29 169/93 10/20/17 17:23 98.2 F 72 15 167/79 99 10/20/17 17:09 18 157/95 10/20/17 16:41 66 18 157/95 97 10/20/17 14:36 76 18 122/89 97 10/20/17 12:11 75 18 141/92 98 10/20/17 11:17 97.5 F L 85 18 119/81 99 Intake and Output 10/20/17 10/21/17 10/21/17 23:59 07:59 15:59 Intake Total 0 / 0 0 / 0 Output Total 0 / 0 0 / 0 Balance 0 / 0 0 / 0 Intake: Oral 0 / 0 0 / 0 Output: Urine 0 / 0 0 / 0 Other: # Voids 1 Weight 57 kg 57 kg Patient Weight 10/21/17 23:59 Weight 57 kg General: Conversant, No Apparent Distress HEENT: Atraumatic, Normocephaly, Mucus Membranes Moist Neck: No JVD, Normal carotid pulses Cardiac: Other (irregularly irregular) Lungs: Normal Breath Sounds, No Wheeze, Rales, Rhonchi Neuro: Alert and responsive, Other (confused) Abdomen: Soft, Non-Tender Skin: No rashes noted on visualized skin Musculoskeletal: No Chest Wall Tenderness Extremities: No Clubbing, No Cyanosis, No Edema, Normal Pulses Results 10/21/17 05:57 10/21/17 05:57 Lab Results 10/21/17 10/21/17 05:57 05:57 WBC 3.0 L Hgb 12.8 Hct 40.2 Plt Count 133 L Sodium 138 Potassium 3.8 Chloride 105 Carbon Dioxide 26 BUN 10 Creatinine 0.79 Glucose 85 Calcium 9.2 TSH 2.456 Short CBC 10/21/17 10/20/17 Range/Units 05:57 11:42 WBC 3.0 L 4.1 L (4.3-11.1) K/mcL Hgb 12.8 13.1 (11.5-15.4) g/dL Hct 40.2 40.9 (35.3-44.9) % Plt Count 133 L 146 (140-400) K/mcL Neutrophils # 1.9 2.8 (1.6-8.9) K/mcL BMP 10/21/17 10/20/17 Range/Units 05:57 11:42 Sodium 138 134 L (136-145) mEq/L Potassium 3.8 3.9 (3.5-5.1) mEq/L Chloride 105 102 (98-107) mEq/L Carbon Dioxide 26 26 (23-29) mEq/L BUN 10 14 (8-23) mg/dL Creatinine 0.79 0.78 (0.60-1.20) mg/dL Glucose 85 99 (70-105) mg/dL Calcium 9.2 9.0 (8.6-10.3) mg/dL Cardiac Enzymes 10/20/17 Range/Units 11:42 Troponin I < 0.03 (< 0.04) ng/mL Liver Function 10/20/17 Range/Units 13:11 Total Bilirubin 0.6 (0.3-1.0) mg/dL Direct Bilirubin 0.6 H (0.0-0.2) mg/dL AST 18 (13-39) Units/L ALT 15 (7-52) Units/L Alkaline Phosphatase 70 (34-104) Units/L Albumin 3.8 (3.5-5.7) g/dL Impressions Chest X-Ray 10/20/17 11:30 IMPRESSION: Stable cardiomegaly. Stable examination without acute focal process. D/ / Mirza Lund MD / Mirza Lund MD Interpreting Provider: Mirza Lund MD Cervical Spine CT 10/20/17 11:31 IMPRESSION: 1. No CT evidence for acute intracranial process. 2. Multilevel degenerative disc disease and hypertrophic degenerative changes of the cervical spine, but no CT evidence for acute osseous abnormality. 3. 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 Direct visualization with laryngoscopy is recommended for further evaluation. D/ / Alfonzo Colón / Alfonzo Colón Interpreting Provider: Alfonzo Colón Head CT 10/20/17 11:31 IMPRESSION: 1. No CT evidence for acute intracranial process. 2. Multilevel degenerative disc disease and hypertrophic degenerative changes of the cervical spine, but no CT evidence for acute osseous abnormality. 3. 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 Direct visualization with laryngoscopy is recommended for further evaluation. D/ / Alfonzo Colón / Alfonzo Colón Interpreting Provider: Alfonzo Colón Lumbar Spine CT 10/20/17 11:37 IMPRESSION: No evidence of acute fracture or malalignment of the lumbar spine. Multilevel disc and facet degenerative changes as described above. D/ / Mirza Lund MD / Mirza Lund MD Interpreting Provider: Mirza Lund MD Pelvis CT 10/20/17 11:37 IMPRESSION: No acute abnormalities are identified. If there is persistent clinical concern or difficulty weight bearing consider MRI evaluation. Degenerative changes to both hips, both SI joints and to the visualized lower lumbar spine. Diffuse bone demineralization. D/ / 10/20/2017 12:40:48 Bryce Welsh MD / babak Interpreting Provider: Bryce Welsh MD Active Medications Acetaminophen (Tylenol) 650 mg PO Q6HR PRN PRN Reason: Mild Pain/Fever Stop: 04/21/18 16:22 Artificial Tears ([place] Tears) 2 drop OP HS PRN; Protocol PRN Reason: Dry Eye(s) Stop: 04/21/18 16:29 Digoxin (Lanoxin) 0.125 mg PO DAILY OK Stop: 04/22/18 09:01 Last Admin: 10/21/17 08:29 Dose: 0.125 mg Donepezil HCl (Aricept) 10 mg PO HS OK Stop: 04/21/18 21:01 Last Admin: 10/20/17 21:42 Dose: 10 mg Sodium Chloride (0.9 % Sodium Chloride) 1,000 mls @ 60 mls/hr IVC .[id number] OK Stop: 10/22/17 01:49 Last Admin: 10/20/17 21:43 Dose: 60 mls/hr Levothyroxine Sodium (Synthroid) 50 mcg PO 0630 OK Stop: 04/22/18 06:31 Last Admin: 10/21/17 06:01 Dose: 50 mcg Naloxone HCl (Narcan) 0.4 mg IVP Q2MIN PRN PRN Reason: SEE COMMENTS Stop: 04/21/18 16:22 Olanzapine (Zyprexa Zydis) 5 mg PO DAILY OK Stop: 04/22/18 09:01 Last Admin: 10/21/17 08:29 Dose: 5 mg Rivaroxaban (Xarelto) 20 mg PO DAILY OK Stop: 04/22/18 09:01 Last Admin: 10/21/17 08:29 Dose: 20 mg Trazodone HCl (Trazodone) 50 mg PO HS PRN PRN Reason: Insomnia Stop: 04/21/18 21:01 - Imaging and Cardiology Echo: report reviewed - EKG Interpretation EKG results cardiology: personally reviewed (A-Fib, rate 63, possible prior inferior [place]) Consult Discharge Plan - Plan Referrals: NONE,PCP [Primary Care Provider] -
--- NOTE | 2017-10-21 17:29 | Internal Med Progress Note ---
Date of Encounter: 10/21/17 Time of Encounter: 12:33 - Assessment and plan (1) Fall from ground level Current Visit: Yes Status: Acute Assessment and plan: Patient currently stable. half-way vital signs reviewed, positive for orthostatic hypotension, which is the probable reason for fall. Multiple trauma imaging studies in the emergency room are negative for acute fracture or dislocation. 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 Continue IV hydration, supportive care, fall precautions. Hold antihypertensives for now. Bilateral carotid Doppler study in March 2017 showed essentially normal carotid arteries. Echocardiogram in March 2017 showed significant valvular heart disease,. Cardiology consulted in regards to echo findings, final recs pending. Hold Toprol Xl, Continue Digoxin - Monitor patient for any arrhythmias or syncopal events. (2) Atrial fibrillation Current Visit: Yes Status: Chronic Assessment and plan: Currently rate controlled. EKG reviewed independently, irregular narrow complex rhythm, atrial fibrillation. Continue digoxin. Hold metoprolol for now. Noted to be on anticoagulation with Xarelto, cardiology evaluation as mentioned above. Qualifiers: Atrial fibrillation type: chronic Qualified Code(s): I48.2 - Chronic atrial fibrillation (3) Dementia Current Visit: Yes Status: Chronic Assessment and plan: continue home meds- Aricept, Trazodone, Zyprexa; Qualifiers: Dementia type: Alzheimer's disease Alzheimer's disease onset: late-onset Dementia behavioral disturbance: with behavioral disturbance Qualified Code(s) : G30.1 - Alzheimer's disease with late onset; F02.81 - Dementia in other diseases classified elsewhere with behavioral disturbance; F02.81 - Dementia in other diseases classified elsewhere with behavioral disturbance; F02.81 - Dementia in other diseases classified elsewhere with behavioral disturbance (4) HTN (hypertension) Current Visit: Yes Status: Chronic Assessment and plan: Hold antihypertensives for now due to orthostatic hypotension. Monitor blood pressure closely. Qualifiers: Hypertension type: essential hypertension Qualified Code(s): I10 - Essential (primary) hypertension (5) Hypothyroid Current Visit: Yes Status: Chronic Qualifiers: Hypothyroidism type: unspecified Qualified Code(s): E03.9 - Hypothyroidism , unspecified (6) Valvular heart disease Current Visit: Yes Status: Chronic Assessment and plan: Echocardiogram from March 2017 shows preserved ejection fraction, severely dilated left atrium, moderate to severe mitral stenosis and tricuspid regurgitation, mild pulmonary hypertension. Patient has been discharged to alf, on Xarelto. Does not have outpatient cardiology visits or testing. half-way paperwork state that patient is full code at this time. We will consult cardiology for further evaluation as this patient is on Xarelto for valvular atrial fibrillation. Hold Lasix for now due to orthostatic hypotension. - Subjective Interval history: No acute events. Patient has no complaints. - Constitutional Vitals: Temp Pulse Resp BP Pulse Ox 97.9 F 97 16 130/74 97 10/21/17 10:45 10/21/17 10:45 10/21/17 10:45 10/21/17 10:45 10/21/17 10:45 General appearance: Present: A&O X 1 (poor memory, unaware of situation.). Absent: answers questions appropriately Exam: - Respiratory Respiratory exam: Present: CTAB. Absent: accessory muscle use, rales, rhonchi, wheezes - Cardiovascular Cardiovascular exam: Present: irregular rhythm, +S1, +S2. Absent: diastolic murmur, gallop, rubs, systolic murmur - GI/Abdominal GI/Abdominal exam: Present: normal bowel sounds, soft, no peritoneal signs. Absent: distended, tenderness - Extremities Exam Extremities exam: Present: full ROM, warm, radial pulses palpable and symmetrical. Absent: calf tenderness, cyanotic, pedal edema - Neurological Exam Neurological exam: Present: altered, no focal deficits. Absent: pronater drift , facial droop, speech deficit Internal Medicine: Result - Labs CBC & Chem 7: 10/21/17 05:57 10/21/17 05:57 Labs: Short CBC 10/21/17 Range/Units 05:57 WBC 3.0 L (4.3-11.1) K/mcL Hgb 12.8 (11.5-15.4) g/dL Hct 40.2 (35.3-44.9) % Plt Count 133 L (140-400) K/mcL Neutrophils # 1.9 (1.6-8.9) K/mcL BMP 10/21/17 05:57 Sodium 138 Potassium 3.8 Chloride 105 Carbon Dioxide 26 BUN 10 Creatinine 0.79 Glucose 85 Calcium 9.2 Consult Discharge Plan - Plan Referrals: NONE,PCP [Primary Care Provider] -
--- NOTE | 2017-10-21 17:44 | ENT - Consult Note ---
Date of Encounter: 10/22/17 Time of Encounter: 12:00 Assessment and Plan (1) Hypopharyngeal cyst Current Visit: Yes Status: Acute Patient is asymptomatic from this benign cyst it is not obstructing and no therapy indicated except observation if patient becomes symptomatic with following or tenderness then should be reevaluated otherwise reevaluate in 3-4 months as outpatient History of Present Illness Reason for ENT Consult: other (Patient was found to have hypopharyngeal cyst on CT scan of cervical spine asymptomatic. Was consult to for evaluation of this) Comment: Nasal laryngoscopy and pharyngoscopy was performed with flexible endoscope History of present illness: Patient is an 81-year-old female who was admitted for effusion, dementia and fall and senior care. She was admitted on October [address] scan of her C- spine showed small less than 1-1/2 cm mucocele in the right vallecula nonobstructing. His was personally reviewed both film and report. I was asked to evaluate her airway because of this. No sx's of swallowing difficulties no aspiration no choking no hoarseness no lump in throat sensation Past Med Surg Social Fam HX - Past Medical History Medical history: atrial fibrillation, dementia, hypertension, thyroid disease, valvular heart disease Psychiatric history: no psych history - Past Surgical History Surgical History: non-contributory - Social History Smoking Status: Never smoker Smokeless Tobacco Status: No Alcohol use: none Drug use: none - Family History Father Family Member Ethnicity: Non- Living Status: Hx Family Cancer: Yes (Throat) Mother Family Member Ethnicity: Non- Living Status: Hx Family Cardiac Disorders: Yes (Stroke/CVA) Brother Family Member Ethnicity: Non- Living Status: Still Living Hx Family Cardiac Disorders: Yes (Heart murmur) Sister Family Member Ethnicity: Non- Living Status: Still Living Hx Family Neurologic Disorders: Yes (Alzheimer's dementia) Medications and Allergies Digoxin [Lanoxin] 0.125 mg PO DAILY 03/18/17 [History] Donepezil [Aricept] 10 mg PO HS 04/24/17 [History] Furosemide [Lasix] 20 mg PO QAM 10/20/17 [History] Levothyroxine [Synthroid] 50 mcg PO 0630 10/20/17 [History] OLANZapine [Zyprexa] 5 mg PO DAILY 10/20/17 [History] Polyvinyl Alcohol [Artificial Tears] 2 drop OP HS PRN 10/20/17 [History] Potassium Chloride [K-Tab ER] 10 meq PO QAM 10/20/17 [History] traZODone [TraZODone] 50 mg PO HS PRN 10/20/17 [History] Aspirin 81 mg PO DAILY tab.chew 10/22/17 [Rx] 3 Allergy/AdvReac Type Severity Reaction Status Date / Time No Known Allergies Allergy Verified 10/20/17 12:08 ENT - ROS ROS unobtainable: other (Patient has significant dementia but she is alert cooperative) ENT Exam Initial Vital Signs Temp Pulse Resp BP Pulse Ox 97.5 F L 85 18 119/81 99 10/20/17 11:17 10/20/17 11:17 10/20/17 11:17 10/20/17 11:17 10/20/17 11:17 - General physical appearance well developed, well nourished, no distress, no pain. negative: moderate distress, severe distress, moderate pain, severe pain, cachectic, obese - Eyes PERRL, normal ocular movement, icteric - ENT normal pinna, normal nares, normal mucosa, no hearing loss, no congestion, Other (A flexible nasal pharyngo-laryngoscopy was performed after verbal consent was obtained nasal cavity was anesthetized in decongested with topical spray with Elder-Synephrine and lidocaine. Good on both sides noted to be normal without obstruction Susan lesions or erythema or purulence, nasopharynx and oropharynx were noted to be normal epipharynx was noted to be less than 1 cm mucocele in the right vallecula nonobstructing epiglottis was normal airway was good, hypopharynx and larynx were normal with good mobile vocal cords). negative: decreased hearing, deviated nasal septum, nasal discharge, poor retirement, dentures, mucosal exudate, dry mucosa - Neck no masses, trachea midline, no lymphadectomy. negative: deviated trachea, diffuse goiter, limited ROM - Respiratory normal expansion, normal respiratory effort, clear to percussion, clear to auscultation - Abdomen Abdomen: soft, non tender, bowel sounds, no tender, no surgical scars - Integumentary no rash, no growths, no abnormal pigmentation - Neurologic normal coordination, normal sensation - Musculoskeletal normal gait, normal posture - Psychiatric oriented to time, oriented to person, oriented to place, speech is normal, memory intact Exam Initial Vital Signs Temp Pulse Resp BP Pulse Ox 97.5 F L 85 18 119/81 99 10/20/17 11:17 10/20/17 11:17 10/20/17 11:17 10/20/17 11:17 10/20/17 11:17 Results - Labs 10/21/17 05:57 10/21/17 05:57 Abnormal lab results WBC 3.0 K/mcL (4.3-11.1) L 10/21/17 05:57 Plt Count 133 K/mcL (140-400) L 10/21/17 05:57 POC Glucose 120 (58-89) H 10/20/17 11:20 Direct Bilirubin 0.6 mg/dL (0.0-0.2) H 10/20/17 13:11 Digoxin 0.7 ng/mL (0.8-2.0) L 10/20/17 11:42 Diabetes panel 10/21/17 Range/Units 05:57 Sodium 138 (136-145) mEq/L Potassium 3.8 (3.5-5.1) mEq/L Chloride 105 (98-107) mEq/L Carbon Dioxide 26 (23-29) mEq/L BUN 10 (8-23) mg/dL Creatinine 0.79 (0.60-1.20) mg/dL Glucose 85 (70-105) mg/dL Calcium 9.2 (8.6-10.3) mg/dL Thyroid panel 10/21/17 Range/Units 05:57 TSH 2.456 (0.340-5.600) mcIU/mL Calcium panel 10/21/17 Range/Units 05:57 Calcium 9.2 (8.6-10.3) mg/dL Pituitary panel 10/21/17 Range/Units 05:57 Sodium 138 (136-145) mEq/L Potassium 3.8 (3.5-5.1) mEq/L Chloride 105 (98-107) mEq/L Carbon Dioxide 26 (23-29) mEq/L BUN 10 (8-23) mg/dL Creatinine 0.79 (0.60-1.20) mg/dL Glucose 85 (70-105) mg/dL Calcium 9.2 (8.6-10.3) mg/dL TSH 2.456 (0.340-5.600) mcIU/mL Adrenal panel 10/21/17 Range/Units 05:57 Sodium 138 (136-145) mEq/L Potassium 3.8 (3.5-5.1) mEq/L Chloride 105 (98-107) mEq/L Carbon Dioxide 26 (23-29) mEq/L BUN 10 (8-23) mg/dL Creatinine 0.79 (0.60-1.20) mg/dL Glucose 85 (70-105) mg/dL Calcium 9.2 (8.6-10.3) mg/dL All other labs normal. Consult Discharge Plan - Plan Referrals: NONE,PCP [Primary Care Provider] - Procedures: Internal Med - Laryngoscopy Sedation/Analgesia: other (topical lidocine and neasynephrine spray) Technique: indirect nasal laryngoscopy Findings: normal larynx, normal epiglottis (Less than 1 cm mucous cyst found within the right vallecula this is nonpathological without erythema without ulceration without exophytic nature), normal vocal cords, no foreign body, normal vocal cord function Complications: none Post-procedure exam: awake, alert
[2017-10-21] MEDS: 0.9 % Sodium Chloride 1,000 ML IVC SCH (22:16)
[2017-10-22 00:57] LABS: Bilirubin,Urine Negative (Negative); Blood,Urine Negative (Negative); Clarity,Urine Clear (Clear); Color,Urine Yellow (Yellow); Glucose,Urine (UA) Normal (Normal); Ketones,Urine Negative (Negative); Leukocyte Esterase,Urine Moderate (Negative); Nitrite,Urine Negative (Negative); PH,Urine 6.5 pH Units (5.0-8.0); Protein,Urine Negative (Neg-Trace); Specific Gravity,Urine 1.024 (1.010-1.025); Urobilinogen,Urine Normal (Normal)
[2017-10-22 00:58] LABS: Bacteria,Urine None Seen per hpf (None-Few); Hyaline Casts,Urine None Seen per lpf (None-Few); Squamous Epithelial Cell,Urine Many per lpf (None-Few); WBC,Urine 15-30 per hpf (0-3)
[2017-10-22] MEDS: OLANZapine 5 MG TAB.RAPDIS PO SCH (09:20)
[2017-10-22] MEDS: Aspirin 81 MG TAB.CHEW PO SCH (09:20)
[2017-10-22] MEDS: *HR* Digoxin 0.125 MG TABLET PO SCH (09:20)
--- NOTE | 2017-10-22 09:54 | Discharge Summary ---
- NOTES TO OUTPATIENT PROVIDER Notes to Outpatient Provider: - Follow-up blood pressure and orthostatic hypotension. BP medications had to be held because of symptoms. - Follow-up with ENT in 3-4 months. Date of Encounter: 10/22/17 Time of Encounter: 09:41 - Discharge Diagnosis (1) Fall from ground level Priority: Primary Status: Acute Comments: Due to orthostatic hypotension - Cardiology consulted because of valvular heart disease and patient not a good candidate for surgical intervention. - Also she is poor candidate for anticoagulation and this was then held per recommendations. (2) Atrial fibrillation Priority: Secondary Status: Chronic Qualifiers: Atrial fibrillation type: chronic Qualified Code(s): I48.2 - Chronic atrial fibrillation (3) Dementia Priority: Secondary Status: Chronic Qualifiers: Dementia type: Alzheimer's disease Alzheimer's disease onset: late-onset Dementia behavioral disturbance: with behavioral disturbance Qualified Code(s) : G30.1 - Alzheimer's disease with late onset; F02.81 - Dementia in other diseases classified elsewhere with behavioral disturbance; F02.81 - Dementia in other diseases classified elsewhere with behavioral disturbance; F02.81 - Dementia in other diseases classified elsewhere with behavioral disturbance (4) HTN (hypertension) Priority: Secondary Status: Chronic Qualifiers: Hypertension type: essential hypertension Qualified Code(s): I10 - Essential (primary) hypertension (5) Hypothyroid Priority: Secondary Status: Chronic Qualifiers: Hypothyroidism type: unspecified Qualified Code(s): E03.9 - Hypothyroidism , unspecified (6) Valvular heart disease Priority: Secondary Status: Chronic Hospital course: Ms. Jones is a 81 year old female with history of significant dementia and memory loss, was sent by long-term after having an unwitnessed fall and noted to have orthostatic hypotension. Patient was unable to provide any history due to dementia, does not remember having a fall or the reason for admission. Per long-term notes, patient was noted to have an unwitnessed fall with possible head injury. Vital signs at the time were positive for orthostatic hypotension with significantly low blood pressure on standing up. She is noted to be on anticoagulation with Xarelto for chronic atrial fibrillation. Patient was admitted for further monitoring. She was positive for orthostatic hypotension and so IV fluids were cautiously given and antihypertensive medications were held. Digoxin was continued as this does not contribute to blood pressure. Based on a prior echocardiogram that showed significant valvular heart disease, a repeat echocardiogram was ordered and Cardiology was consulted. Based on patient significant dementia and fall risk, it was recommended that Xarelto be discontinued and she is to be on aspirin only and is also poor candidate for coumadin. She was also noted to be poor candidate for intervention of her valvular heart disease. Patient after further monitoring had no further falling episodes. BP and HR remained stable after withholding metoprolol. ENT was consulted as patient did have an epiglottic mass and ENT suggested follow-up in 3-4 months. Patient was discharged back to long-term in stable condition and Xarelto metoprolol were held and she was discharged with aspirin as per recommendations. - Time Spent with Patient Total time spent providing and/or coordinating discharge services: - Discharge Medications Home Medications: Digoxin [Lanoxin] 0.125 mg PO DAILY 03/18/17 [History] Donepezil [Aricept] 10 mg PO HS 04/24/17 [History] Furosemide [Lasix] 20 mg PO QAM 10/20/17 [History] Levothyroxine [Synthroid] 50 mcg PO 0630 10/20/17 [History] OLANZapine [Zyprexa] 5 mg PO DAILY 10/20/17 [History] Polyvinyl Alcohol [Artificial Tears] 2 drop OP HS PRN 10/20/17 [History] Potassium Chloride [K-Tab ER] 10 meq PO QAM 10/20/17 [History] traZODone [TraZODone] 50 mg PO HS PRN 10/20/17 [History] Aspirin 81 mg PO DAILY tab.chew 10/22/17 [Rx] Allergies/Adverse Reactions: 3 Allergy/AdvReac Type Severity Reaction Status Date / Time No Known Allergies Allergy Verified 10/20/17 12:08 Date of admission: 10/20/17 15:49 Primary care physician: PCP NONE Consults: 10/20/17 16:59 Consult to ENT [CONS] Stat Consulting Provider: MAILE Pradhan Reason for Consult: 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 with recommendation for direct visualization Time Notified: 16:59 Call Completed: Yes 10/20/17 17:03 Consult to Cardiology [CONS] Routine Comment: Consulting Provider: [facility] [place] Reason for Consult: Severe mitral stenosis, valvular atrial fibrillation Call Completed: No 10/20/17 22:05 Consult to Nutrition [CONS] Routine Comment: Consulting Provider: NUTRITION Reason for Dietary Consult: MST Score Discharging clinician: Shireen Mendez - Constitutional Vitals: Temp Pulse Resp BP Pulse Ox 97.4 F L 74 15 138/87 98 10/22/17 06:27 10/22/17 06:27 10/22/17 06:27 10/22/17 06:27 10/22/17 06:27 General appearance: Present: A&O X 1 (poor memory, unaware of situation.). Absent: answers questions appropriately Exam: - Respiratory Respiratory exam: Present: CTAB. Absent: accessory muscle use, rales, rhonchi, wheezes - Cardiovascular Cardiovascular exam: Present: irregular rhythm, +S1, +S2. Absent: diastolic murmur, gallop, rubs, systolic murmur - GI/Abdominal GI/Abdominal exam: Present: normal bowel sounds, soft, no peritoneal signs. Absent: distended, tenderness - Extremities Exam Extremities exam: Present: full ROM, warm, radial pulses palpable and symmetrical. Absent: calf tenderness, cyanotic, pedal edema - Neurological Exam Neurological exam: Present: altered, no focal deficits. Absent: pronater drift , facial droop, speech deficit - Patient Status Disposition: Transfer SNF Condition: Fair Functional capacity at discharge: wheelchair bound Overall status at discharge: patient is progressing back to baseline - Discharge Instructions Follow Up With: NONE,PCP [Primary Care Provider] - - Diet and Activity Activity: as per physical therapy (PT/OT evaluation at SNF recommended.) Diet: advance to your usual diet
--- NOTE | 2017-10-22 10:07 | Physician Discharge Referral ---
ExtendedCare Referral Info Institutional Level of Care: Skilled - Diagnosis (1) Fall from ground level Priority: Primary Status: Acute (2) Atrial fibrillation Priority: Secondary Status: Chronic (3) Dementia Priority: Secondary Status: Chronic (4) HTN (hypertension) Priority: Secondary Status: Chronic (5) Hypothyroid Priority: Secondary Status: Chronic (6) Valvular heart disease Priority: Secondary Status: Chronic - Transfer Medications Home Medications: Digoxin [Lanoxin] 0.125 mg PO DAILY 03/18/17 [History] Donepezil [Aricept] 10 mg PO HS 04/24/17 [History] Furosemide [Lasix] 20 mg PO QAM 10/20/17 [History] Levothyroxine [Synthroid] 50 mcg PO 0630 10/20/17 [History] OLANZapine [Zyprexa] 5 mg PO DAILY 10/20/17 [History] Polyvinyl Alcohol [Artificial Tears] 2 drop OP HS PRN 10/20/17 [History] Potassium Chloride [K-Tab ER] 10 meq PO QAM 10/20/17 [History] traZODone [TraZODone] 50 mg PO HS PRN 10/20/17 [History] Aspirin 81 mg PO DAILY tab.chew 10/22/17 [Rx] Allergies/Adverse Reactions: 3 Allergy/AdvReac Type Severity Reaction Status Date / Time No Known Allergies Allergy Verified 10/20/17 12:08 - Respiratory Orders Smoking Cessation: Smoking cessation has been advised. For more information, call the [place] Tobacco Quit Line at 1-081-AMDE-NOW. - Ancillary Orders May use pressure relief devices daily prn, May consult with Dentist, Wood Floor Refinisher, Developer Advisor PRN - Advance Directives Code Status: Full Code - Mobility Orders Other (PT/OT evaluation) - Rehabiliation Orders Rehab Potential: Fair Rehab Orders: Evaluation for Physical Therapy, Evaluation for Occupational Therapy - Diet Orders Cardiac CERTIFICATION: I certify that the transfer of the above named patient to an Extended Care Facility is necessary for the continuing treatment of the diagnosis listed. The above information is true and accurate reflection of patient's current condition. Confidential - Redisclosure prohibited without a patient's written consent.
[2017-10-23] MEDS: Aspirin 81 MG TAB.CHEW PO SCH (09:37)
[2017-10-23] MEDS: OLANZapine 5 MG TAB.RAPDIS PO SCH (09:37)
[2017-10-23] MEDS: *HR* Digoxin 0.125 MG TABLET PO SCH (09:37)
[2017-10-23 10:48] VITALS: BP 131/71
--- NOTE | 2017-10-23 13:40 | Internal Med Progress Note ---
Date of Encounter: 10/23/17 Time of Encounter: 13:39 - Assessment and plan (1) Fall from ground level Current Visit: Yes Status: Acute Assessment and plan: Patient currently stable. alf vital signs reviewed, positive for orthostatic hypotension, which is the probable reason for fall. Multiple trauma imaging studies in the emergency room are negative for acute fracture or dislocation. 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 Continue IV hydration, supportive care, fall precautions. Hold antihypertensives for now. Bilateral carotid Doppler study in March 2017 showed essentially normal carotid arteries. Echocardiogram in March 2017 showed significant valvular heart disease,. Patient discharged, pending to SNF (2) Atrial fibrillation Current Visit: Yes Status: Chronic Assessment and plan: Currently rate controlled. EKG reviewed independently, irregular narrow complex rhythm, atrial fibrillation. Continue digoxin. Hold metoprolol for now. Noted to be on anticoagulation with Xarelto, cardiology evaluation as mentioned above. Qualifiers: Atrial fibrillation type: chronic Qualified Code(s): I48.2 - Chronic atrial fibrillation (3) Dementia Current Visit: Yes Status: Chronic Assessment and plan: continue home meds- Aricept, Trazodone, Zyprexa; Qualifiers: Dementia type: Alzheimer's disease Alzheimer's disease onset: late-onset Dementia behavioral disturbance: with behavioral disturbance Qualified Code(s) : G30.1 - Alzheimer's disease with late onset; F02.81 - Dementia in other diseases classified elsewhere with behavioral disturbance; F02.81 - Dementia in other diseases classified elsewhere with behavioral disturbance; F02.81 - Dementia in other diseases classified elsewhere with behavioral disturbance (4) HTN (hypertension) Current Visit: Yes Status: Chronic Assessment and plan: Hold antihypertensives for now due to orthostatic hypotension. Monitor blood pressure closely. Qualifiers: Hypertension type: essential hypertension Qualified Code(s): I10 - Essential (primary) hypertension (5) Hypothyroid Current Visit: Yes Status: Chronic Qualifiers: Hypothyroidism type: unspecified Qualified Code(s): E03.9 - Hypothyroidism , unspecified (6) Valvular heart disease Current Visit: Yes Status: Chronic Assessment and plan: Echocardiogram from March 2017 shows preserved ejection fraction, severely dilated left atrium, moderate to severe mitral stenosis and tricuspid regurgitation, mild pulmonary hypertension. Patient has been [facility], on Xarelto. Does not have outpatient cardiology visits or testing. alf paperwork state that patient is full code at this time. We will consult cardiology for further evaluation as this patient is on Xarelto for valvular atrial fibrillation. Hold Lasix for now due to orthostatic hypotension. - Subjective Interval history: No acute issues. Pending discharge. - Constitutional Vitals: Temp Pulse Resp BP Pulse Ox 97.8 F 75 16 131/71 97 10/23/17 10:23 10/23/17 10:23 10/23/17 10:23 10/23/17 10:23 10/23/17 10:23 General appearance: Present: A&O X 1 (poor memory, unaware of situation.). Absent: answers questions appropriately - Head Head exam: Present: atraumatic, normocephalic - Eye Eye exam: Present: PERRL, conjuntiva pink, sclera anicteric Pupils: Present: PERRL - Neck Neck exam general surgery: Present: supple, trachea midline. Absent: lymphadenopathy - Respiratory Respiratory exam: Present: CTAB. Absent: accessory muscle use, rales, rhonchi, wheezes - Cardiovascular Cardiovascular exam: Present: RRR, +S1, +S2. Absent: diastolic murmur, gallop, rubs, systolic murmur - GI/Abdominal GI/Abdominal exam: Present: normal bowel sounds, soft, no peritoneal signs. Absent: distended, tenderness - Extremities Exam Extremities exam: Present: warm, radial pulses palpable and symmetrical. Absent : calf tenderness, cyanotic, pedal edema - Neurological Exam Neurological exam: Present: CN II-XII intact, oriented X3, no focal deficits. Absent: pronater drift, facial droop, speech deficit - Skin Skin exam: Present: dry, intact Internal Medicine: Result - Labs CBC & Chem 7: 10/21/17 05:57 10/21/17 05:57 Consult Discharge Plan - Plan Referrals: NONE,PCP [Primary Care Provider] -
== END 2017-10-23 16:07 ==
LOC: 3ANU 11:15 → EMEROO 11:15 → 3ANU 17:11
PROVIDERS: ADMIT Internal Medicine; ATTEND Internal Medicine